=== PATIENT | male | born 1945 | race Caucasian/White ===

== ENCOUNTER → 2017-07-22 | Outpatient (CLI) | payer OTHER ==
--- NOTE | 2017-07-22 13:01 | FL ---
EXAMINATION TYPE: FL barium swallow w video DATE OF EXAM: 07/22/2017 MODIFIED SWALLOW / DEGLUTITION STUDY CLINICAL HISTORY: Dysphagia. TECHNIQUE: Deglutition study is performed utilizing thin liquid barium, honey and nectar thick liqui d barium, barium thick applesauce, and barium coated cracker. 1 minute and 51 seconds of fluoroscopy time was utilized with 0 images saved. COMPARISON: None. FINDINGS: The oral and pharyngeal phases show satisfactory initiation and propagation with all modali ties tested. Normal mastication is seen with solid modalities tested. Intermittent laryngeal penetra tion without aspiration was seen using a large bolus of the thin liquid consistency. During smaller s wallows no penetration was identified with the thin consistency. Throughout the remainder of the exam there is no evidence of penetration or aspiration with any other modality tested. Mild vallecular re tention was seen with the barium thick capsule is consistency. IMPRESSION: Intermittent laryngeal penetration with large bolus thin liquid consistency only. No asp iration. Please refer to speech therapist notes for further details if necessary.
== END | disposition home or self-care (01) ==
LOC: RADFLMAIN 11:04
PROVIDERS: ATTEND Otolaryngology
DX: R13.10 Dysphagia, unspecified (principal)
CPT/HCPCS: 74230

== ENCOUNTER → 2017-08-13 | Outpatient (CLI) | payer OTHER ==
--- NOTE | 2017-08-13 12:07 | MR ---
EXAMINATION TYPE: MR brain wo con DATE OF EXAM: 08/13/2017 11:16 AM COMPARISON: 08/08/2014 HISTORY: Stroke FINDINGS: The ventricles, basal cisterns and sulci overlying the cerebral convexities are moderate to severe en largement. There is evidence of moderate periventricular white matter ischemic demyelination. Remote deep white matter insults are also noted. No acute edema is seen on diffusion weighted imaging. There is no evidence for midline shift or mass effect. Acute intracranial hemorrhage or extra-axial collection is not evident. Mucosal thickening involving the maxillary and ethmoid air cells. IMPRESSION: Age-related atrophic and chronic small vessel ischemic change. No acute intracranial process at this time.
== END ==
LOC: RADMRIMAIN 10:47
PROVIDERS: ATTEND Psychiatry & Neurology Pain Medicine
DX: I63.9 Cerebral infarction, unspecified (principal); M54.5 Low back pain
CPT/HCPCS: 70551

== ENCOUNTER 2017-10-07 20:21 | Emergency (ER) | payer MEDICARE, OTHER ==
--- NOTE | 2017-10-07 21:02 | ED ---
General Adult HPI - General Chief complaint: Fall Stated complaint: Head injury Time Seen by Provider: 10/07/17 20:50 Source: patient, family, RN notes reviewed Mode of arrival: wheelchair Limitations: altered mental status, physical limitation - History of Present Illness Initial comments: Patient is a pleasant 72-year-old male presenting to the emergency department following a fall. Patient does admit to alcohol intake today. Patient states he does drink frequently. Family believes patient likely was not using his walker and fell. Patient does have balance problems from previous stroke and leg injury. Patient did strike his head. Unclear if there was loss of consciousness or not. Patient did seem somewhat drowsy to family prior to arrival however feel he is acting normal at this time. Patient only complains of mild discomfort of his left posterior scalp otherwise has no complaints. - Related Data Home Medications Medication Instructions Recorded Confirmed Atorvastatin [Lipitor] 80 mg PO HS 07/31/15 03/20/16 Cholecalciferol [Vitamin D3] 1,000 unit PO DAILY 07/31/15 03/20/16 Meclizine [Antivert] 12.5 mg PO TID PRN 07/31/15 03/20/16 Vitamin B Complex 1 cap PO DAILY 07/31/15 03/20/16 Atenolol [Tenormin] 25 mg PO DAILY 03/20/16 03/20/16 Budesonide/Formoterol Fumarate 2 puff INHALATION RT-BID 03/20/16 03/20/16 [Symbicort 160-4.5 Mcg Inhaler] Sertraline [Zoloft] 50 mg PO DAILY 03/20/16 03/20/16 Tiotropium 18 Mcg/Puff [Spiriva] 1 cap INHALATION RT-DAILY 03/20/16 03/20/16 Warfarin [Coumadin] 3 mg PO DAILY 03/20/16 03/20/16 oxyCODONE-APAP 5-325MG [Percocet 2 tab PO Q4-6H PRN 03/20/16 03/20/16 5-325 mg] Previous Rx's Medication Instructions Recorded Clopidogrel [Plavix] 75 mg PO DAILY tab 08/13/14 Ipratropium-Albuterol Nebulize 3 ml INHALATION RT-TID ampul.neb 08/13/14 [Duoneb 0.5 mg-3 mg/3 ml Soln] Omeprazole [PriLOSEC] 20 mg PO AC-BRKFST capsule. 08/13/14 Allergies Allergy/AdvReac Type Severity Reaction Status Date / Time No Known Allergies Allergy Verified 10/07/17 20:38 Review of Systems ROS Statement: Those systems with pertinent positive or pertinent negative responses have been documented in the HPI. ROS Other: All systems not noted in ROS Statement are negative. Constitutional: Denies: fever Eyes: Denies: eye pain ENT: Denies: ear pain Respiratory: Denies: cough Cardiovascular: Denies: chest pain Endocrine: Denies: fatigue Gastrointestinal: Denies: abdominal pain Genitourinary: Denies: dysuria Musculoskeletal: Reports: back pain (Chronic and unchanged) Skin: Denies: rash Neurological: Reports: headache Past Medical History Past Medical History: CVA/TIA, Hyperlipidemia, Hypertension, Myocardial Infarction ([place]), Osteoarthritis (OA) Additional Past Medical History / Comment(s): CATARACTS, GOUT Last Myocardial Infarction Date:: UNK History of Any Multi-Drug Resistant Organisms: None Reported Past Surgical History: Back Surgery, Orthopedic Surgery Additional Past Surgical History / Comment(s): RT SHOULDER SX Past Anesthesia/Blood Transfusion Reactions: No Reported Reaction Past Psychological History: No Psychological Hx Reported Smoking Status: Current every day smoker Past Alcohol Use History: Heavy, Occasional Past Drug Use History: None Reported - Past Family History Father Family Medical History: Unable to Obtain Mother Family Medical History: Unable to Obtain General Exam Limitations: altered mental status, physical limitation General appearance: alert, in no apparent distress Head exam: Present: other (Soft tissue swelling left posterior scalp) Eye exam: Present: normal appearance, PERRL ENT exam: Present: normal oropharynx Neck exam: Present: normal inspection. Absent: tenderness Respiratory exam: Present: normal lung sounds bilaterally Cardiovascular Exam: Present: regular rate, normal rhythm GI/Abdominal exam: Present: soft. Absent: tenderness Extremities exam: Present: normal inspection, full ROM. Absent: tenderness Neurological exam: Present: alert, CN II-XII intact Expanded Cranial nerves: EOM's Intact: Normal Motor strength exam: RUE: 5, LUE: 5, RLE: 3 (Reported as chronic and unchanged) , LLE: 5 Eye Response: (4) open spontaneously Motor Response: (6) obeys commands Verbal Response: (5) oriented Psychiatric exam: Present: normal affect, normal mood Skin exam: Present: normal color Course Vital Signs 10/07/17 10/07/17 10/07/17 20:33 21:33 22:09 Temperature 99.0 F Pulse Rate 95 88 112 H Respiratory 18 18 19 Rate Blood Pressure 139/80 138/77 135/70 O2 Sat by Pulse 96 97 95 Oximetry 10/07/17 10/07/17 22:24 23:06 Temperature 98.2 F Pulse Rate 89 82 Respiratory 18 18 Rate Blood Pressure 138/77 O2 Sat by Pulse 96 95 Oximetry EKG Findings - EKG Comments: EKG Findings:: Sinus rhythm at 89. For screening AV block with SC of 212. QRS 92. QT 382. QTC 464. Normal axis. Normal QRS. No acute ST change. Medical Decision Making - Medical Decision Making Patient reevaluated and resting comfortably in bed. Patient and family updated on results and plan. - Lab Data Result diagrams: 10/07/17 21:03 10/07/17 21:03 Lab Results 10/07/17 10/07/17 10/07/17 Range/Units 21:03 21:03 21:03 WBC 8.0 (3.8-10.6) k/uL RBC 5.13 (4.30-5.90) m/uL Hgb 18.5 H (13.0-17.5) gm/dL Hct 54.8 H (39.0-53.0) % MCV 106.8 H (80.0-100.0) fL MCH 36.1 H (25.0-35.0) pg MCHC 33.8 (31.0-37.0) g/dL RDW 14.7 (11.5-15.5) % Plt Count 196 (150-450) k/uL Neutrophils % 58 % Lymphocytes % 33 % Monocytes % 5 % Eosinophils % 2 % Basophils % 0 % Neutrophils # 4.7 (1.3-7.7) k/uL Lymphocytes # 2.6 (1.0-4.8) k/uL Monocytes # 0.4 (0-1.0) k/uL Eosinophils # 0.2 (0-0.7) k/uL Basophils # 0.0 (0-0.2) k/uL Macrocytosis Moderate PT 11.0 (9.0-12.0) sec INR 1.1 (<1.2) APTT 25.2 (22.0-30.0) sec Sodium 142 (137-145) mmol/L Potassium 4.1 (3.5-5.1) mmol/L Chloride 99 (98-107) mmol/L Carbon Dioxide 24 (22-30) mmol/L Anion Gap 19 mmol/L BUN 11 (9-20) mg/dL Creatinine 0.80 (0.66-1.25) mg/dL Est GFR (CKD-EPI)AfAm >90 (>60 ml/min/1.73 sqM) Est GFR (CKD-EPI)NonAf >90 (>60 ml/min/1.73 sqM) Glucose 88 (74-99) mg/dL Calcium 9.5 (8.4-10.2) mg/dL Total Bilirubin 0.8 (0.2-1.3) mg/dL AST 44 (17-59) U/L ALT 42 (21-72) U/L Alkaline Phosphatase 77 (38-126) U/L Total Protein 7.3 (6.3-8.2) g/dL Albumin 4.2 (3.5-5.0) g/dL Serum Alcohol 144 mg/dL - Radiology Data Radiology results: report reviewed (Computed tomography scan of the brain and cervical spine reveal no acute process.), image reviewed (Chest x-ray and pelvis x-ray show no acute process) Disposition Clinical Impression: Fall, Head injury Disposition: HOME SELF-CARE Condition: Stable Instructions: Fall Prevention for Older Adults (ED), Head Injury (ED), Alcohol Intoxication (ED), Abuse of Alcohol (ED) Additional Instructions: Please follow-up with primary care physician in the next day or 2 for recheck. Discontinue alcohol use. Hold Plavix and hold Coumadin for the next 3 days. Return for change in mental status, weakness, confusion, worsening or changing symptoms or other concerns. Is patient prescribed a controlled substance at d/c from ED?: No Referrals: Matias Hoffman DO [Doctor of Osteopathic Medicine] - 1-2 days Time of Disposition: 23:09
[2017-10-07] MEDS ORDERED: SODIUM CHLORIDE 0.9% 1,000 ML IV ONE (21:27)
--- NOTE | 2017-10-07 21:37 | CT ---
EXAMINATION TYPE: CT brain marques andrade DATE OF EXAM: 10/07/2017 COMPARISON: NONE HISTORY: Fall from standing position. CT DLP: 1445.[address] of the brain was performed. The ventricles, basal cisterns and sulci overlying the cerebral convexities demonstrate mildl enlarge ment. There is no evidence for intracranial hemorrhage or sulcal effacement. There is decreased attenuatio n about the periventricular white matter and deep white matter of both cerebral hemispheres, compatib le with chronic small vessel ischemia. No mass effects are seen. If symptoms persist consider MRI. Osseous calvarium is intact. Left temporal parietal scalp hematoma is small in size. IMPRESSION: 1. Age related atrophic and chronic small vessel ischemic change without acute intracranial process seen at this time. CT Cervical Spine: Unenhanced CT of the cervical spine was performed with bone and soft tissue window settings submitted . Coronal and sagittal reconstruction is obtained. There is normal alignment and prevertebral soft tissues. No evidence for acute cervical fracture . Scattered degenerative disc disease and spondylosis. Biapical scarring. IMPRESSION: 1. No evidence for acute fracture or subluxation of the cervical spine.
[2017-10-07 21:47] LABS: Basophils % (A) 0 %; Eosinophils # (A) 0.2 k/uL (0-0.7); Eosinophils % (A) 2 %; HCT 54.8 % (39.0-53.0); HGB 18.5 gm/dL (13.0-17.5); INR 1.1 (<1.2); Lymphocytes # (A) 2.6 k/uL (1.0-4.8); Lymphocytes % (A) 33 %; MCH 36.1 pg (25.0-35.0); MCHC 33.8 g/dL (31.0-37.0); MCV 106.8 fL (80.0-100.0); Macrocytosis Moderate; Mean Platelet Volume 7.3; Monocytes # (A) 0.4 k/uL (0-1.0); Monocytes % (A) 5 %; Neutrophils # (A) 4.7 k/uL (1.3-7.7); Neutrophils % (A) 58 %; Platelet Count 196 k/uL (150-450); RBC 5.13 m/uL (4.30-5.90); RDW 14.7 % (11.5-15.5)
[2017-10-07 21:48] LABS: Partial Thromboplastin Time 25.2 sec (22.0-30.0)
[2017-10-07 21:50] LABS: ALT 42 U/L (21-72); AST 44 U/L (17-59); Albumin 4.2 g/dL (3.5-5.0); Alkaline Phosphatase 77 U/L (38-126); Anion Gap 19 mmol/L; Blood Urea Nitrogen 11 mg/dL (9-20); Calcium 9.5 mg/dL (8.4-10.2); Carbon Dioxide 24 mmol/L (22-30); Chloride 99 mmol/L (98-107); Glucose 88 mg/dL (74-99); Potassium 4.1 mmol/L (3.5-5.1); Sodium 142 mmol/L (137-145); Total Bilirubin 0.8 mg/dL (0.2-1.3); Total Protein 7.3 g/dL (6.3-8.2)
[2017-10-07 21:53] LABS: Alcohol 144 mg/dL
--- NOTE | 2017-10-07 21:53 | XR ---
EXAMINATION TYPE: XR pelvis AP view DATE OF EXAM: 10/07/2017 CLINICAL HISTORY: pain TECHNIQUE: Single view the pelvis is submitted. FINDINGS: No evidence for fracture, dislocation or bony lesion. Joint spaces are well-preserved. S I joints appear symmetric. Postoperative changes lumbar spine and right hip. IMPRESSION: 1. No acute fracture or dislocation seen. ICD 10 NO FRACTURE, INITIAL EVALUATION
--- NOTE | 2017-10-07 21:54 | XR ---
EXAMINATION TYPE: XR chest 1V portable DATE OF EXAM: 10/07/2017 HISTORY: Shortness of breath. COMPARISON: 03/13/1716 TECHNIQUE: Single view of the chest is submitted. FINDINGS: Demonstrated are scattered senescent parenchymal change. There is no evidence for focal infiltrate. The heart is stable. Hilar and mediastinal structures are within normal limits. Degenerative changes are seen of the dorsal spine. IMPRESSION: 1. Chronic changes without evidence for acute pulmonary disease.
[2017-10-07 22:26] VITALS: RESP 18
[2017-10-07 23:07] VITALS: BP 138/77; PULSE 82; TEMP 98.2
== END 2017-10-07 23:08 | disposition home or self-care (01) ==
LOC: EC 20:21
DX: S09.90XA Unspecified injury of head, initial encounter (principal); E78.5 Hyperlipidemia, unspecified; I10 Essential (primary) hypertension; I25.2 Old myocardial infarction; F17.200 Nicotine dependence, unspecified, uncomplicated; Z86.73 Personal history of transient ischemic attack (TIA), and cerebral infarction without residual deficits; Z79.51 Long term (current) use of inhaled steroids; Z79.01 Long term (current) use of anticoagulants; Z79.899 Other long term (current) drug therapy; W18.00XA Striking against unspecified object with subsequent fall, initial encounter; Y92.009 Unspecified place in unspecified non-institutional (private) residence as the place of occurrence of the external cause
CPT/HCPCS: 36415; 70450; 71045; 72125; 72170; 80053; 80320; 85025; 85610; 85730; 93005; 96360; 99284

== ENCOUNTER 2018-02-09 22:23 | Emergency (ER) | payer MEDICARE, OTHER ==
[2018-02-09 22:29] VITALS: RESP 18; TEMP 98.3
--- NOTE | 2018-02-09 23:03 | XR ---
EXAMINATION TYPE: XR ribs RT w pa chest xray DATE OF EXAM: 02/09/2018 COMPARISON: Chest x-ray 03/13/1716 HISTORY: Rib pain TECHNIQUE: 5 views FINDINGS: Heart and mediastinum are normal. Lungs are clear. There is no pleural effusion or pneumoth orax. There is slight deformity on one view of the anterior right seventh rib. This could be a nondis placed fracture. There are fractures of the posterior right seventh and eighth ribs.. IMPRESSION: Right posterior and anterior rib fractures. No pneumothorax. Normal heart.
[2018-02-09] MEDS ORDERED: LIDOCAINE 5% PATCH TOPICAL STA (23:15)
--- NOTE | 2018-02-09 23:21 | ED ---
Fall HPI - General Source: patient, RN notes reviewed Mode of arrival: ambulatory Limitations: no limitations <Matias Deshpande - Last Filed: 02/09/18 23:15> <Marlene Mccullough - Last Filed: 02/10/18 03:14> - General Chief Complaint: Fall Stated Complaint: Fall/Rib pain Time Seen by Provider: 02/09/18 22:39 - History of Present Illness Initial Comments: 72-year-old male present emergency from chief complaint trip and fall. Patient states she is using his walker and states that he tripped over striking his right side of his chest on the couch. Patient denies any head injury, neck or upper extremity injuries. Patient was able to get up off the floor by himself no difficulty. He states he has pain when he coughs or he moves. He states he does not feel short of breath at this time. (Matias Deshpande) - Related Data Home Medications Medication Instructions Recorded Confirmed Atorvastatin [Lipitor] 80 mg PO HS 07/31/15 03/20/16 Cholecalciferol [Vitamin D3] 1,000 unit PO DAILY 07/31/15 03/20/16 Meclizine [Antivert] 12.5 mg PO TID PRN 07/31/15 03/20/16 Vitamin B Complex 1 cap PO DAILY 07/31/15 03/20/16 Atenolol [Tenormin] 25 mg PO DAILY 03/20/16 03/20/16 Budesonide/Formoterol Fumarate 2 puff INHALATION RT-BID 03/20/16 03/20/16 [Symbicort 160-4.5 Mcg Inhaler] Sertraline [Zoloft] 50 mg PO DAILY 03/20/16 03/20/16 Tiotropium 18 Mcg/Puff [Spiriva] 1 cap INHALATION RT-DAILY 03/20/16 03/20/16 Warfarin [Coumadin] 3 mg PO DAILY 03/20/16 03/20/16 oxyCODONE-APAP 5-325MG [Percocet 2 tab PO Q4-6H PRN 03/20/16 03/20/16 5-325 mg] Previous Rx's Medication Instructions Recorded Clopidogrel [Plavix] 75 mg PO DAILY tab 08/13/14 Ipratropium-Albuterol Nebulize 3 ml INHALATION RT-TID ampul.neb 08/13/14 [Duoneb 0.5 mg-3 mg/3 ml Soln] Omeprazole [PriLOSEC] 20 mg PO AC-BRKFST capsule. 08/13/14 Lidocaine 5% Patch [Lidoderm 5% 1 patch TOPICAL DAILY #1 box 02/09/18 Patch] Allergies Allergy/AdvReac Type Severity Reaction Status Date / Time No Known Allergies Allergy Verified 02/09/18 22:29 Review of Systems ROS Other: All systems not noted in ROS Statement are negative. <Matias Deshpande - Last Filed: 02/09/18 23:15> ROS Other: All systems not noted in ROS Statement are negative. <Marlene Mccullough - Last Filed: 02/10/18 03:14> ROS Statement: Those systems with pertinent positive or pertinent negative responses have been documented in the HPI. Past Medical History Past Medical History: CVA/TIA, Hyperlipidemia, Hypertension, Myocardial Infarction ([place]), Osteoarthritis (OA) Additional Past Medical History / Comment(s): CATARACTS, GOUT Last Myocardial Infarction Date:: UNK History of Any Multi-Drug Resistant Organisms: None Reported Past Surgical History: Back Surgery, Orthopedic Surgery Additional Past Surgical History / Comment(s): RT SHOULDER SX Past Anesthesia/Blood Transfusion Reactions: No Reported Reaction Past Psychological History: No Psychological Hx Reported Smoking Status: Current every day smoker Past Alcohol Use History: Heavy, Occasional Past Drug Use History: None Reported - Past Family History Father Family Medical History: Unable to Obtain Mother Family Medical History: Unable to Obtain <Matias Deshpande - Last Filed: 02/09/18 23:15> General Exam Limitations: no limitations General appearance: alert, in no apparent distress Eye exam: Present: normal appearance, PERRL, EOMI. Absent: scleral icterus, conjunctival injection, periorbital swelling Neck exam: Present: normal inspection, full ROM. Absent: tenderness, meningismus, lymphadenopathy Respiratory exam: Present: normal lung sounds bilaterally, chest wall tenderness (Severe right-sided anterior lateral rib tenderness). Absent: respiratory distress, wheezes, rales, rhonchi, stridor Cardiovascular Exam: Present: regular rate, normal rhythm, normal heart sounds. Absent: systolic murmur, diastolic murmur, rubs, gallop, clicks GI/Abdominal exam: Present: soft, normal bowel sounds. Absent: distended, tenderness, guarding, rebound, rigid Extremities exam: Present: normal inspection, full ROM, normal capillary refill. Absent: tenderness, pedal edema, joint swelling, calf tenderness Back exam: Present: full ROM. Absent: tenderness, paraspinal tenderness, vertebral tenderness <Matias Deshpande - Last Filed: 02/09/18 23:15> Vital Signs 02/09/18 02/09/18 22:26 23:30 Temperature 98.3 F Pulse Rate 100 94 Respiratory 18 18 Rate Blood Pressure 171/91 155/86 O2 Sat by Pulse 96 95 Oximetry Medical Decision Making <Matias Deshpande - Last Filed: 02/09/18 23:15> <Marlene Mccullough - Last Filed: 02/10/18 03:14> - Medical Decision Making 72-year-old male presented for a trip, fall injury to the right side of his chest. Patient is noted to have seventh and eighth rib fracture. Patient refuses narcotic pain meds. Patient will be discharged with incentive spirometry, Lidoderm patches. We discussed return parameters and close follow- up. Patient's vitals are stable at this time. (Matias Deshpande) I was available for consultation in the emergency department. The history and physical exam were done by the midlevel provider. I was consulted for this patient's care. I reviewed the case with the midlevel provider and based on their presentation of the patient, I agree with the assessment, medical decision making and plan of care as documented. (Marlene Mccullough) Disposition Is patient prescribed a controlled substance at d/c from ED?: No Time of Disposition: 23:21 <Matias Deshpande - Last Filed: 02/09/18 23:15> <Marlene Mccullough - Last Filed: 02/10/18 03:14> Clinical Impression: Fall, Multiple fractures of ribs, right side, initial encounter for closed fracture Disposition: HOME SELF-CARE Condition: Stable Instructions: Rib Fracture (ED) Additional Instructions: Please return to the Emergency Department if symptoms worsen or any other concerns. Prescriptions: Lidocaine 5% Patch [Lidoderm 5% Patch] 1 patch TOPICAL DAILY #1 box Referrals: [facility],Clinic [Primary Care Provider] - 1-2 days
[2018-02-09 23:33] VITALS: BP 155/86; PULSE 94
== END 2018-02-09 23:39 | disposition home or self-care (01) ==
LOC: EC 22:23
DX: S22.41XA Multiple fractures of ribs, right side, initial encounter for closed fracture (principal); E78.5 Hyperlipidemia, unspecified; I10 Essential (primary) hypertension; I25.2 Old myocardial infarction; M10.9 Gout, unspecified; F17.200 Nicotine dependence, unspecified, uncomplicated; Z86.73 Personal history of transient ischemic attack (TIA), and cerebral infarction without residual deficits; Z79.01 Long term (current) use of anticoagulants; Z79.51 Long term (current) use of inhaled steroids; Z79.899 Other long term (current) drug therapy; W01.190A Fall on same level from slipping, tripping and stumbling with subsequent striking against furniture, initial encounter; Y92.009 Unspecified place in unspecified non-institutional (private) residence as the place of occurrence of the external cause
CPT/HCPCS: 99283

== ENCOUNTER 2019-01-15 01:10 | Emergency (ER) | payer MEDICARE, OTHER ==
[2019-01-15] MEDS ORDERED: DIPH,PERTUS(ACELL)TETVAC-LF 0.5 ML VIAL IM ONE (01:12)
[2019-01-15] MEDS ORDERED: SODIUM CHLORIDE 0.9% 1,000 ML IV STA (01:12)
--- NOTE | 2019-01-15 01:36 | ED ---
Fall HPI <Matias Deshpande M - Last Filed: 01/15/19 02:51> - General Source: quantitative analyst marketing Mode of arrival: EMS <Marlene Mccullough - Last Filed: 01/15/19 06:22> - General Stated Complaint: Fall, ETOH Time Seen by Provider: 01/15/19 01:12 - History of Present Illness Initial Comments: Roney is a 73-year-old male who is brought to the ED today via EMS for corky luation after fall. Patient reports he was drinking alcohol earlier, he had a fall and struck his head. He doesn't believe he lost consciousness. Apparently his neighbor attempted to help about but couldn't so he called 911. Patient denies other injuries or pain however he is quite intoxicated and does not recall all events of the evening. (Marlene Mccullough) - Related Data Home Medications Medication Instructions Recorded Confirmed Atorvastatin [Lipitor] 80 mg PO HS 07/31/15 03/20/16 Cholecalciferol [Vitamin D3 (25 1,000 unit PO DAILY 07/31/15 03/20/16 Mcg = 1000 Iu)] Meclizine [Antivert] 12.5 mg PO TID PRN 07/31/15 03/20/16 Vitamin B Complex 1 cap PO DAILY 07/31/15 03/20/16 Atenolol [Tenormin] 25 mg PO DAILY 03/20/16 03/20/16 Budesonide/Formoterol Fumarate 2 puff INHALATION RT-BID 03/20/16 03/20/16 [Symbicort 160-4.5 Mcg Inhaler] Sertraline [Zoloft] 50 mg PO DAILY 03/20/16 03/20/16 Tiotropium 18 Mcg/Puff [Spiriva] 1 cap INHALATION RT-DAILY 03/20/16 03/20/16 Warfarin [Coumadin] 3 mg PO DAILY 03/20/16 03/20/16 oxyCODONE-APAP 5-325MG [Percocet 2 tab PO Q4-6H PRN 03/20/16 03/20/16 5-325 mg] Previous Rx's Medication Instructions Recorded Clopidogrel [Plavix] 75 mg PO DAILY tab 08/13/14 Ipratropium-Albuterol Nebulize 3 ml INHALATION RT-TID ampul.neb 08/13/14 [Duoneb 0.5 mg-3 mg/3 ml Soln] Omeprazole [PriLOSEC] 20 mg PO AC-BRKFST capsule. 08/13/14 Lidocaine 5% Patch [Lidoderm 5% 1 patch TOPICAL DAILY #1 box 02/09/18 Patch] Allergies Allergy/AdvReac Type Severity Reaction Status Date / Time No Known Allergies Allergy Verified 01/15/19 01:17 Review of Systems ROS Other: All systems not noted in ROS Statement are negative. <Matias Deshpande - Last Filed: 01/15/19 02:51> ROS Other: All systems not noted in ROS Statement are negative. <Marlene Mccullough - Last Filed: 01/15/19 06:22> ROS Statement: Those systems with pertinent positive or pertinent negative responses have been documented in the HPI. Past Medical History Past Medical History: CVA/TIA, Hyperlipidemia, Hypertension, Myocardial Infarction ([place]), Osteoarthritis ([place]) Additional Past Medical History / Comment(s): CATARACTS, GOUT Last Myocardial Infarction Date:: UNK History of Any Multi-Drug Resistant Organisms: None Reported Past Surgical History: Back Surgery, Orthopedic Surgery Additional Past Surgical History / Comment(s): RT SHOULDER SX Past Anesthesia/Blood Transfusion Reactions: No Reported Reaction Past Psychological History: No Psychological Hx Reported Smoking Status: Current every day smoker Past Alcohol Use History: Heavy, Occasional Past Drug Use History: None Reported - Past Family History Father Family Medical History: Unable to Obtain Mother Family Medical History: Unable to Obtain <Marlene Mccullough P - Last Filed: 01/15/19 06:22> General Exam Limitations: altered mental status <Marlene Mccullough P - Last Filed: 01/15/19 06:22> - General Exam Comments Initial Comments: Physical Exam GENERAL: Chronically ill-appearing HENT: Normocephalic Laceration was appears surface of head No crepitance No mandujano signs or raccoon eyes EYES: PERRL, EOMI PULMONARY: Mild expiratory wheezing CARDIOVASCULAR: There is a regular rate and rhythm without any murmurs gallops or rubs. ABDOMEN: Soft and nontender with normal bowel sounds. SKIN: Skin is clear with no lesions or rashes and otherwise unremarkable. : Deferred NEUROLOGIC: Alert and oriented to person, able to identify that he is in a hospital and came by ambulance, able to identify the president Somewhat confused about events of the evening, poor medical leader MUSCULOSKELETAL: Normal extremities with adequate strength and full range of motion. No lower extremity swelling or edema. No calf tenderness. PSYCHIATRIC: Deny suicidal or homicidal ideation (Marlene Mccullough) Course Vital Signs 01/15/19 01/15/19 01:11 02:37 Temperature 98.2 F 98.0 F Pulse Rate 99 96 Respiratory 18 18 Rate Blood Pressure 141/108 137/98 O2 Sat by Pulse 95 97 Oximetry Procedures - Laceration Laceration #1 Consent Obtained: verbal consent Indication: laceration Site: scalp Size (cm): 7 Description: linear Depth: simple, single layer Pre-repair: wound explored, irrigated extensively, deep structures intact Type of Sutures: other (Dermal courtney) Number of Sutures: 10 (courtney) Patient Tolerated Procedure: well, no complications <Matias Deshpande - Last Filed: 01/15/19 02:51> Medical Decision Making - Lab Data Result diagrams: 01/15/19 01:15 01/15/19 01:15 <Matias Deshpande - Last Filed: 01/15/19 02:51> - Lab Data Result diagrams: 01/15/19 01:15 01/15/19 01:15 <Marlene Mccullough - Last Filed: 01/15/19 06:22> - Medical Decision Making The patient was seen and evaluated per ATLS peripheral Patient has a patent airway and is speaking in full sentences, breath sounds are present bilaterally There is no active bleeding Secondary survey does reveal laceration of the head as well as some confusion Labs and imaging ordered EKG was obtained as per the trauma workup, EKG obtained at 20 5 AM, rate is 98 rhythm is sinus there is normal axis, there is a prolonged RI 214, QS is 80, QTC is 472 there are no acute ST elevations or depressions no evidence of acute ischemia or infarction. Labs were reviewed, mild elevation of AST consistent with alcohol abuse Alcohol [address] with no acute findings, laceration was repaired with courtney (Marlene Mccullough) - Lab Data Lab Results 01/15/19 01/15/19 01/15/19 Range/Units 01:15 01:15 01:15 WBC 9.9 (3.8-10.6) k/uL RBC 4.56 (4.30-5.90) m/uL Hgb 17.1 (13.0-17.5) gm/dL Hct 54.6 H (39.0-53.0) % MCV 119.6 H (80.0-100.0) fL MCH 37.4 H (25.0-35.0) pg MCHC 31.3 (31.0-37.0) g/dL RDW 14.7 (11.5-15.5) % Plt Count 165 (150-450) k/uL Neutrophils % 55 % Lymphocytes % 36 % Monocytes % 4 % Eosinophils % 2 % Basophils % 1 % Neutrophils # 5.4 (1.3-7.7) k/uL Lymphocytes # 3.5 (1.0-4.8) k/uL Monocytes # 0.3 (0-1.0) k/uL Eosinophils # 0.2 (0-0.7) k/uL Basophils # 0.1 (0-0.2) k/uL Manual Slide Review Performed Macrocytosis Marked A Stomatocytes Present PT 10.6 (9.0-12.0) sec INR 1.0 (<1.2) APTT 22.3 (22.0-30.0) sec Sodium 139 (137-145) mmol/L Potassium 4.7 (3.5-5.1) mmol/L Chloride 106 (98-107) mmol/L Carbon Dioxide 19 L (22-30) mmol/L Anion Gap 14 mmol/L BUN 8 L (9-20) mg/dL Creatinine 0.70 (0.66-1.25) mg/dL Est GFR (CKD-EPI)AfAm >90 (>60 ml/min/1.73 sqM) Est GFR (CKD-EPI)NonAf >90 (>60 ml/min/1.73 sqM) Glucose 104 H (74-99) mg/dL Calcium 9.3 (8.4-10.2) mg/dL Total Bilirubin 0.6 (0.2-1.3) mg/dL AST 83 H (17-59) U/L ALT 55 (21-72) U/L Alkaline Phosphatase 111 (38-126) U/L Total Protein 8.0 (6.3-8.2) g/dL Albumin 4.3 (3.5-5.0) g/dL Urine Color Urine Appearance (Clear) Urine pH (5.0-8.0) Ur Specific [place] (1.001-1.035) Urine Protein (Negative) Urine Glucose (UA) (Negative) Urine Ketones (Negative) Urine Blood (Negative) Urine Nitrite (Negative) Urine Bilirubin (Negative) Urine Urobilinogen (<2.0) mg/dL Ur Leukocyte Esterase (Negative) Urine RBC (0-5) /hpf Urine WBC (0-5) /hpf Ur Squamous Epith Cells (0-4) /hpf Urine Bacteria (None) /hpf Hyaline Casts (0-2) /lpf Serum Alcohol 220 H* mg/dL Blood Type Blood Type Recheck Antibody Screen Spec Expiration Date 01/15/19 01/15/19 Range/Units 01:15 02:08 WBC (3.8-10.6) k/uL RBC (4.30-5.90) m/uL Hgb (13.0-17.5) gm/dL Hct (39.0-53.0) % MCV (80.0-100.0) fL MCH (25.0-35.0) pg MCHC (31.0-37.0) g/dL RDW (11.5-15.5) % Plt Count (150-450) k/uL Neutrophils % % Lymphocytes % % Monocytes % % Eosinophils % % Basophils % % Neutrophils # (1.3-7.7) k/uL Lymphocytes # (1.0-4.8) k/uL Monocytes # (0-1.0) k/uL Eosinophils # (0-0.7) k/uL Basophils # (0-0.2) k/uL Manual Slide Review Macrocytosis Stomatocytes PT (9.0-12.0) sec INR (<1.2) APTT (22.0-30.0) sec Sodium (137-145) mmol/L Potassium (3.5-5.1) mmol/L Chloride (98-107) mmol/L Carbon Dioxide (22-30) mmol/L Anion Gap mmol/L BUN (9-20) mg/dL Creatinine (0.66-1.25) mg/dL Est GFR (CKD-EPI)AfAm (>60 ml/min/1.73 sqM) Est GFR (CKD-EPI)NonAf (>60 ml/min/1.73 sqM) Glucose (74-99) mg/dL Calcium (8.4-10.2) mg/dL Total Bilirubin (0.2-1.3) mg/dL AST (17-59) U/L ALT (21-72) U/L Alkaline Phosphatase (38-126) U/L Total Protein (6.3-8.2) g/dL Albumin (3.5-5.0) g/dL Urine Color Yellow Urine Appearance Clear (Clear) Urine pH 5.5 (5.0-8.0) Ur Specific [place] 1.006 (1.001-1.035) Urine Protein Negative (Negative) Urine Glucose (UA) Negative (Negative) Urine Ketones Negative (Negative) Urine Blood Trace H (Negative) Urine Nitrite Negative (Negative) Urine Bilirubin Negative (Negative) Urine Urobilinogen <2.0 (<2.0) mg/dL Ur Leukocyte Esterase Small H (Negative) Urine RBC 1 (0-5) /hpf Urine WBC 11 H (0-5) /hpf Ur Squamous Epith Cells <1 (0-4) /hpf Urine Bacteria Rare H (None) /hpf Hyaline Casts 1 (0-2) /lpf Serum Alcohol mg/dL Blood Type O Positive Blood Type Recheck No Antibody Screen NEGATIVE Spec Expiration Date 01/18/2019 - 0 Disposition <Matias Deshpande M - Last Filed: 01/15/19 02:51> Is patient prescribed a controlled substance at d/c from ED?: No <Marlene Mccullough - Last Filed: 01/15/19 06:22> Clinical Impression: Fall, Scalp laceration, Alcohol intoxication Disposition: HOME SELF-CARE Condition: Stable Instructions (If sedation given, give patient instructions): Fall Prevention for Older Adults (ED), Staple Care (ED) Additional Instructions: Return in 1 week for staple removal Referrals: [facility],Clinic [Primary Care Provider] - 1-2 days
[2019-01-15 01:46] LABS: Basophils # (A) 0.1 k/uL (0-0.2); Basophils % (A) 1 %; Eosinophils # (A) 0.2 k/uL (0-0.7); Eosinophils % (A) 2 %; HCT 54.6 % (39.0-53.0); HGB 17.1 gm/dL (13.0-17.5); Lymphocytes # (A) 3.5 k/uL (1.0-4.8); Lymphocytes % (A) 36 %; MCH 37.4 pg (25.0-35.0); MCHC 31.3 g/dL (31.0-37.0); MCV 119.6 fL (80.0-100.0); Macrocytosis Marked; Mean Platelet Volume 7.4; Monocytes # (A) 0.3 k/uL (0-1.0); Monocytes % (A) 4 %; Neutrophils # (A) 5.4 k/uL (1.3-7.7); Neutrophils % (A) 55 %; Platelet Count 165 k/uL (150-450); RBC 4.56 m/uL (4.30-5.90); RDW 14.7 % (11.5-15.5); WBC 9.9 k/uL (3.8-10.6)
--- NOTE | 2019-01-15 01:58 | XR ---
EXAM: XR Chest, 1 View CLINICAL HISTORY: ITS.REASON XR Reason: trauma TECHNIQUE: Frontal view of the chest. COMPARISON: 10/07/17 IMPRESSION: No pneumothorax, pulmonary edema, pleural effusion, consolidation. Unchanged heart size. No definite fracture.
[2019-01-15 01:59] LABS: ALT 55 U/L (21-72); AST 83 U/L (17-59); African American GFR (CKD) >90 (>60 ml/min/1.73 sqM); Albumin 4.3 g/dL (3.5-5.0); Alkaline Phosphatase 111 U/L (38-126); Anion Gap 14 mmol/L; Blood Urea Nitrogen 8 mg/dL (9-20); Calcium 9.3 mg/dL (8.4-10.2); Carbon Dioxide 19 mmol/L (22-30); Chloride 106 mmol/L (98-107); Glucose 104 mg/dL (74-99); Potassium 4.7 mmol/L (3.5-5.1); Sodium 139 mmol/L (137-145); Total Bilirubin 0.6 mg/dL (0.2-1.3)
--- NOTE | 2019-01-15 01:59 | XR ---
EXAM: XR Pelvis, 1 or 2 Views CLINICAL HISTORY: ITS.REASON XR Reason: Trauma TECHNIQUE: Frontal view of the pelvis. COMPARISON: 10/07/17 IMPRESSION: Unchanged right femoral hardware. Moderate bilateral hip joint space loss, unchanged. Heterotopic ossification around the right femoral head, Unchanged. No fracture or subluxation.
[2019-01-15 02:05] LABS: Partial Thromboplastin Time 22.3 sec (22.0-30.0); Prothrombin Time 10.6 sec (9.0-12.0)
--- NOTE | 2019-01-15 02:15 | CT ---
EXAM: CT Head Without Intravenous Contrast CLINICAL HISTORY: ITS.REASON CT Reason: trauma TECHNIQUE: Axial computed tomography images of the head/brain without intravenous contrast. CTDI is 45 mGy and DLP is 1102 mGy-cm. This CT exam was performed using one or more of the following dose reduction techniques: automated exposure control, adjustment of the mA and/or kV according to patient size, and/or use of iterative reconstruction technique. COMPARISON: 10/07/17 CT head FINDINGS: Brain: No hemorrhage, large hypodensity, or mass effect. Chronic microvascular ischemic changes. Ventricles: No hydrocephalus. Age related cerebral volume loss. Bones/joints: Unremarkable. Soft tissues: Unremarkable. Sinuses: Minimal mucosal thickening of the paranasal sinuses. Mastoid air cells: Clear. IMPRESSION: No acute hemorrhage, hydrocephalus, or mass effect. EXAM: CT Cervical Spine Without Intravenous Contrast CLINICAL HISTORY: ITS.REASON CT Reason: trauma TECHNIQUE: Axial computed tomography images of the cervical spine without intravenous contrast. CTDI is 12 mGy and DLP is 383 mGy-cm. This CT exam was performed using one or more of the following dose reduction techniques: automated exposure control, adjustment of the mA and/or kV according to patient size, and/or use of iterative reconstruction technique. COMPARISON: 10/07/17 CT cervical spine FINDINGS: Vertebrae: No acute fracture. Unfused posterior arch of C1. Discs/spinal canal/neural foramina: Degenerative changes. No high grade spinal canal stenosis. 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 IMPRESSION: No acute fracture or subluxation. 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
[2019-01-15 02:19] LABS: Alcohol 220 mg/dL
[2019-01-15 02:26] LABS: Stomatocytes Present
[2019-01-15 02:36] LABS: Appearance,Urine Clear (Clear); Bacteria,Urine Rare /hpf; Bilirubin,Urine Negative (Negative); Blood,Urine Trace (Negative); Color,Urine Yellow; Glucose,Urine (UA) Negative (Negative); Hyaline Casts,Urine 1 /lpf (0-2); Ketones,Urine Negative (Negative); Leukocyte Esterase,Urine Small (Negative); Nitrite,Urine Negative (Negative); PH, Urine 5.5 (5.0-8.0); Protein,Urine Negative (Negative); RBC,Urine 1 /hpf (0-5); Specific Gravity,Urine 1.006 (1.001-1.035); Squamous Epithelial Cell,Urine <1 /hpf (0-4); Urobilinogen,Urine <2.0 mg/dL (<2.0); WBC,Urine 11 /hpf (0-5)
[2019-01-15 07:04] VITALS: RESP 18
[2019-01-15 07:12] VITALS: BP 134/75; PULSE 98; TEMP 98.2
== END 2019-01-15 07:40 | disposition home or self-care (01) ==
LOC: EC 01:10
DX: S01.01XA Laceration without foreign body of scalp, initial encounter (principal); F10.129 Alcohol abuse with intoxication, unspecified; R74.0 Nonspecific elevation of levels of transaminase and lactic acid dehydrogenase [LDH]; E78.5 Hyperlipidemia, unspecified; I10 Essential (primary) hypertension; I25.2 Old myocardial infarction; M19.90 Unspecified osteoarthritis, unspecified site; F17.200 Nicotine dependence, unspecified, uncomplicated; Z86.73 Personal history of transient ischemic attack (TIA), and cerebral infarction without residual deficits; Z79.51 Long term (current) use of inhaled steroids; Z79.01 Long term (current) use of anticoagulants; Z79.891 Long term (current) use of opiate analgesic; Z79.899 Other long term (current) drug therapy; Z23 Encounter for immunization; W19.XXXA Unspecified fall, initial encounter; Y90.7 Blood alcohol level of 200-239 mg/100 ml
CPT/HCPCS: 12002; 36415; 70450; 71045; 72125; 72170; 80053; 80320; 81001; 85025; 85610; 85730; 86850; 86900; 86901; 90471; 90715; 96360; 99284

== ENCOUNTER 2019-07-05 00:55 | Emergency (ER) | payer OTHER ==
--- NOTE | 2019-07-05 01:12 | ED ---
Alcohol HPI - General Chief Complaint: Alcohol Stated Complaint: ETOH Time Seen by Provider: 07/05/19 01:06 Source: patient, police, EMS Mode of arrival: EMS - History of Present Illness Initial Comments: Patient is 73-year-old man brought by ambulance to have evaluation. Had been drinking all day and then had a fall and struck his head. At the scene patient not able to ambulate without assistance. Patient indicates the left occipital area. Not sure if he lost consciousness. MD Complaint: alcohol intoxication Last Drink: just VEGETABLE SCULLION Recent Trauma: Yes Associated Symptoms: denies other symptoms Treatments Prior to Arrival: none Chronic Alcohol Use: Yes - Related Data Home Medications Medication Instructions Recorded Confirmed Atorvastatin [Lipitor] 80 mg PO HS 07/31/15 03/20/16 Cholecalciferol [Vitamin D3 (25 1,000 unit PO DAILY 07/31/15 03/20/16 Mcg = 1000 Iu)] Meclizine [Antivert] 12.5 mg PO TID PRN 07/31/15 03/20/16 Vitamin B Complex 1 cap PO DAILY 07/31/15 03/20/16 Atenolol [Tenormin] 25 mg PO DAILY 03/20/16 03/20/16 Budesonide/Formoterol Fumarate 2 puff INHALATION RT-BID 03/20/16 03/20/16 [Symbicort 160-4.5 Mcg Inhaler] Sertraline [Zoloft] 50 mg PO DAILY 03/20/16 03/20/16 Tiotropium 18 Mcg/Puff [Spiriva] 1 cap INHALATION RT-DAILY 03/20/16 03/20/16 Warfarin [Coumadin] 3 mg PO DAILY 03/20/16 03/20/16 oxyCODONE-APAP 5-325MG [Percocet 2 tab PO Q4-6H PRN 03/20/16 03/20/16 5-325 mg] Previous Rx's Medication Instructions Recorded Clopidogrel [Plavix] 75 mg PO DAILY tab 08/13/14 Ipratropium-Albuterol Nebulize 3 ml INHALATION RT-TID ampul.neb 08/13/14 [Duoneb 0.5 mg-3 mg/3 ml Soln] Omeprazole [PriLOSEC] 20 mg PO AC-BRKFST capsule. 08/13/14 Lidocaine 5% Patch [Lidoderm 5% 1 patch TOPICAL DAILY #1 box 02/09/18 Patch] Allergies Allergy/AdvReac Type Severity Reaction Status Date / Time No Known Allergies Allergy Verified 01/15/19 01:17 Review of Systems ROS Statement: Those systems with pertinent positive or pertinent negative responses have been documented in the HPI. ROS Other: All systems not noted in ROS Statement are negative. Constitutional: Denies: fever Eyes: Denies: vision change Respiratory: Denies: cough, dyspnea Cardiovascular: Reports: syncope. Denies: chest pain Gastrointestinal: Denies: abdominal pain, vomiting Musculoskeletal: Denies: back pain Skin: Denies: rash Neurological: Reports: as per HPI, headache, confusion. Denies: weakness, numbness, paresthesias Psychiatric: Denies: suicidal thoughts Past Medical History Past Medical History: CVA/TIA, Hyperlipidemia, Hypertension, Myocardial Infarction ([place]), Osteoarthritis (OA) Additional Past Medical History / Comment(s): CATARACTS, GOUT Last Myocardial Infarction Date:: UNK History of Any Multi-Drug Resistant Organisms: None Reported Past Surgical History: Back Surgery, Orthopedic Surgery Additional Past Surgical History / Comment(s): RT SHOULDER SX Past Anesthesia/Blood Transfusion Reactions: No Reported Reaction Past Psychological History: No Psychological Hx Reported Smoking Status: Current every day smoker Past Alcohol Use History: Heavy, Occasional Past Drug Use History: None Reported - Past Family History Father Family Medical History: Unable to Obtain Mother Family Medical History: Unable to Obtain General Exam General appearance: alert, appears intoxicated Head exam: Present: normocephalic, other (Contusion left occipital) Eye exam: Present: normal appearance, PERRL, EOMI, nystagmus. Absent: scleral icterus, conjunctival injection Neck exam: Present: normal inspection, full ROM. Absent: tenderness Respiratory exam: Present: normal lung sounds bilaterally. Absent: respiratory distress, wheezes, rales, rhonchi, stridor Cardiovascular Exam: Present: regular rate, normal rhythm, normal heart sounds. Absent: systolic murmur, diastolic murmur, rubs, gallop GI/Abdominal exam: Present: soft. Absent: tenderness, guarding, rebound Extremities exam: Present: normal inspection, normal capillary refill Back exam: Present: normal inspection. Absent: vertebral tenderness Neurological exam: Present: alert, CN II-XII intact. Absent: oriented X3, motor sensory deficit Skin exam: Present: warm, dry, intact, normal color. Absent: rash Course Vital Signs 07/05/19 00:56 Temperature 97 F L Pulse Rate 109 H Respiratory 18 Rate Blood Pressure 136/85 O2 Sat by Pulse 98 Oximetry Disposition Clinical Impression: Alcoholic intoxication, Status post fall, Head injury Disposition: HOME SELF-CARE Condition: Good Instructions (If sedation given, give patient instructions): Alcohol Intoxication (ED) Is patient prescribed a controlled substance at d/c from ED?: No Referrals: [facility],Clinic [Primary Care Provider] - 1-2 days
--- NOTE | 2019-07-05 02:34 | CT ---
EXAMINATION TYPE: CT brain marques wo con DATE OF EXAM: 07/05/2019 COMPARISON: 01/15/2019 HISTORY: Fall Headache. Neck pain CT DLP: 1301.9 mGycm Automated exposure control for dose reduction was used. Multiple axial sections were obtained of the brain without contrast. Multiple axial sections were obt ained from the skull base to T1 vertebra without contrast. FINDINGS: Cervical vertebra have normal alignment. Disc spaces are fairly normal for age. Posterior elements ar e intact. Facet joints are intact. The skull base is intact. There is mild hypertrophic cervical face t arthropathy. There is no evidence of cervical spine fracture. There is moderate diffuse cerebral cortical atrophy. There is no mass effect nor midline shift. There is no sign of intracranial hemorrhage. The calvarium is intact. There is no evidence of cerebral cameron ma. IMPRESSION: Cerebral atrophy. No acute intracranial abnormality. No change. Spondylotic mild changes in the cervical spine. No fracture. No change.
[2019-07-05 08:53] VITALS: BP 123/85; PULSE 95; RESP 18; TEMP 97.8
== END 2019-07-05 08:51 | disposition home or self-care (01) ==
LOC: EC 00:55
DX: F10.129 Alcohol abuse with intoxication, unspecified (principal); S00.03XA Contusion of scalp, initial encounter; I10 Essential (primary) hypertension; E78.5 Hyperlipidemia, unspecified; I25.2 Old myocardial infarction; F17.200 Nicotine dependence, unspecified, uncomplicated; Z79.01 Long term (current) use of anticoagulants; Z79.899 Other long term (current) drug therapy; Z79.51 Long term (current) use of inhaled steroids; Z86.73 Personal history of transient ischemic attack (TIA), and cerebral infarction without residual deficits; W18.09XA Striking against other object with subsequent fall, initial encounter
CPT/HCPCS: 70450; 72125; 82075; 99284

== ENCOUNTER 2019-07-07 14:53 | Emergency (ER) | payer OTHER ==
[2019-07-07 15:00] VITALS: TEMP 97.9
[2019-07-07] MEDS ORDERED: HYDROcodone/APAP 7.5-325MG 1 EACH TAB PO ONE (15:22)
--- NOTE | 2019-07-07 15:24 | ED ---
Fall HPI - General Chief Complaint: Fall Stated Complaint: elbow pain-revisit Time Seen by Provider: 07/07/19 15:09 Source: patient, RN notes reviewed Mode of arrival: wheelchair Limitations: no limitations - History of Present Illness Initial Comments: This is a 73-year-old male presents emergency Department chief complaint right elbow pain. Patient didn't increasing pain over the last day. He states he had a fall 2 days ago which is evaluated in the emergency department has CT of his head but states he did not have much discomfort his right elbow at the time. He does admit that he was intoxicated and may be this altered. Patient is unable to move his right elbow fully without discomfort. There has been some redness and swelling noted no fevers or chills. - Related Data Home Medications Medication Instructions Recorded Confirmed Atorvastatin [Lipitor] 80 mg PO HS 07/31/15 03/20/16 Cholecalciferol [Vitamin D3 (25 1,000 unit PO DAILY 07/31/15 03/20/16 Mcg = 1000 Iu)] Meclizine [Antivert] 12.5 mg PO TID PRN 07/31/15 03/20/16 Vitamin B Complex 1 cap PO DAILY 07/31/15 03/20/16 Atenolol [Tenormin] 25 mg PO DAILY 03/20/16 03/20/16 Budesonide/Formoterol Fumarate 2 puff INHALATION RT-BID 03/20/16 03/20/16 [Symbicort 160-4.5 Mcg Inhaler] Sertraline [Zoloft] 50 mg PO DAILY 03/20/16 03/20/16 Tiotropium 18 Mcg/Puff [Spiriva] 1 cap INHALATION RT-DAILY 03/20/16 03/20/16 Warfarin [Coumadin] 3 mg PO DAILY 03/20/16 03/20/16 oxyCODONE-APAP 5-325MG [Percocet 2 tab PO Q4-6H PRN 03/20/16 03/20/16 5-325 mg] Previous Rx's Medication Instructions Recorded Clopidogrel [Plavix] 75 mg PO DAILY tab 08/13/14 Ipratropium-Albuterol Nebulize 3 ml INHALATION RT-TID ampul.neb 08/13/14 [Duoneb 0.5 mg-3 mg/3 ml Soln] Omeprazole [PriLOSEC] 20 mg PO AC-BRKFST capsule. 08/13/14 Lidocaine 5% Patch [Lidoderm 5% 1 patch TOPICAL DAILY #1 box 02/09/18 Patch] Clindamycin HCl 300 mg PO Q6HR #40 cap 07/07/19 Allergies Allergy/AdvReac Type Severity Reaction Status Date / Time No Known Allergies Allergy Verified 07/07/19 14:59 Review of Systems ROS Statement: Those systems with pertinent positive or pertinent negative responses have been documented in the HPI. ROS Other: All systems not noted in ROS Statement are negative. Past Medical History Past Medical History: CVA/TIA, Hyperlipidemia, Hypertension, Myocardial Infarction ([place]), Osteoarthritis (OA) Additional Past Medical History / Comment(s): CATARACTS, GOUT Last Myocardial Infarction Date:: UNK History of Any Multi-Drug Resistant Organisms: None Reported Past Surgical History: Back Surgery, Orthopedic Surgery Additional Past Surgical History / Comment(s): RT SHOULDER SX Past Anesthesia/Blood Transfusion Reactions: No Reported Reaction Past Psychological History: No Psychological Hx Reported Smoking Status: Current every day smoker Past Alcohol Use History: Daily, Heavy Past Drug Use History: None Reported - Past Family History Father Family Medical History: Unable to Obtain Mother Family Medical History: Unable to Obtain General Exam Limitations: no limitations General appearance: alert, in no apparent distress Head exam: Present: atraumatic, normocephalic, normal inspection Respiratory exam: Present: normal lung sounds bilaterally. Absent: respiratory distress, wheezes, rales, rhonchi, stridor Cardiovascular Exam: Present: regular rate, normal rhythm, normal heart sounds. Absent: systolic murmur, diastolic murmur, rubs, gallop, clicks Extremities exam: Present: other (Right elbow there is moderate swelling, mild erythema mild increase in warmth, very limited range of motion secondary to pain, tenderness with palpation no pain proximal or distal to the right elbow) Course Vital Signs 07/07/19 14:56 Temperature 97.9 F Pulse Rate 115 H Respiratory 20 Rate Blood Pressure 152/90 O2 Sat by Pulse 94 L Oximetry Medical Decision Making - Medical Decision Making X-rays negative for acute fracture. Patient does have symptoms consistent with bursitis there is no open lesions or sores there is no clear evidence for infection though patient we placed and advised to follow-up with orthopedics. Disposition Clinical Impression: Olecranon bursitis, right elbow Disposition: HOME SELF-CARE Condition: Stable Instructions (If sedation given, give patient instructions): Elbow Bursitis (ED) Additional Instructions: Please return to the Emergency Department if symptoms worsen or any other concerns. Prescriptions: Clindamycin HCl 300 mg PO Q6HR #40 cap Is patient prescribed a controlled substance at d/c from ED?: No Referrals: [facility],Clinic [Primary Care Provider] - 1-2 days Raghu Reyes MD [Medical Doctor] - 1-2 days Time of Disposition: 16:09
--- NOTE | 2019-07-07 15:56 | XR ---
EXAMINATION TYPE: XR elbow complete RT DATE OF EXAM: 07/07/2019 CLINICAL HISTORY: pain TECHNIQUE: Frontal, lateral and oblique images of the right elbow are obtained. COMPARISON: None. FINDINGS: There is no acute fracture/dislocation evident of the elbow. No abnormal fat pad signs ar e seen. The overlying soft tissue appears unremarkable. IMPRESSION: There is no acute fracture or dislocation of the elbow. ICD 10 NO FRACTURE, INITIAL EVALUATION
[2019-07-07] MEDS ORDERED: ACET/COD 300 MG/30 MG STARTER PACK 6 TAB BTL PO STA (16:09)
[2019-07-07 16:21] VITALS: BP 122/87; PULSE 100; RESP 18
== END 2019-07-07 16:17 | disposition home or self-care (01) ==
LOC: EC 14:53
DX: M70.21 Olecranon bursitis, right elbow (principal); E78.5 Hyperlipidemia, unspecified; I10 Essential (primary) hypertension; I25.2 Old myocardial infarction; M19.90 Unspecified osteoarthritis, unspecified site; M10.9 Gout, unspecified; F17.200 Nicotine dependence, unspecified, uncomplicated; Z79.01 Long term (current) use of anticoagulants; Z79.899 Other long term (current) drug therapy; Z98.890 Other specified postprocedural states; Z86.73 Personal history of transient ischemic attack (TIA), and cerebral infarction without residual deficits; W19.XXXA Unspecified fall, initial encounter
CPT/HCPCS: 99283

== ENCOUNTER 2019-07-21 18:08 | Emergency (ER) | payer OTHER ==
[2019-07-21] MEDS ORDERED: SODIUM CHLORIDE 0.9% 1,000 ML IV STA (18:13)
[2019-07-21 18:16] LABS: Glucose,Whole Blood 123 mg/dL (75-99)
--- NOTE | 2019-07-21 18:31 | ED ---
General Adult HPI - General Stated complaint: Poss CVA Time Seen by Provider: 07/21/19 18:13 - History of Present Illness Initial comments: Dictation was produced using [employer] dictation software. please excuse any grammatical, word or spelling errors. Chief Complaint: 73-year-old male with past medical history of CVA, dyslipidemia hypertension presents with strokelike symptoms. History of Present Illness: 73-year-old male presents with strokelike symptoms. Patient is brought in by EMS. He was last seen normal approximately 2:30 PM. Patient was found in the ground by family members. Family members were called and noted that patient was discovered to have left-sided weakness. Patient is on Coumadin therapy. She is a poor historian at this time. Most of history is obtained from EMS. She allegedly has history of CVA with right-sided residual deficits. The ROS documented in this emergency department record has been reviewed and confirmed by me. Those systems with pertinent positive or negative responses have been documented in the HPI. All other systems are other negative and/or noncontributory. PHYSICAL EXAM: General Impression: Alert and oriented x3, not in acute distress, follows commands HEENT: Normocephalic atraumatic, extra-ocular movements intact, pupils equal and reactive to light bilaterally, tremulous membranes Cardiovascular: Tachycardic Chest: Mild end expiratory wheeze Abdomen: Bowel sounds present, abdomen soft, non-tender, non-distended, no organomegaly Musculoskeletal: Pulses present and equal in all extremities, no peripheral edema Neurological: Left-sided facial droop, valenzuela facies, drift of the left upper extremity and right upper extremity. Left upper extremity seems weaker than right upper extremity. Patient unable to hold up his right leg, unable to lift both legs. Skin: Intact with no visualized rashes ED course: 73-year-old male presents with altered mental status and strokelike symptoms. Code stroke paged. Blood glucose is 120. Laboratory evaluation obtained. No leukocytosis. There is minimal blastic anemia with a MCV of 121.3. Rest of CBC is grossly unremarkable. Coag panels INR 1.2. Urinalysis is likely subtherapeutic for patient. Reports that he hasn't taken his Coumadin or any of his medications for 3 months. Metabolic panel shows hypomagnesemia. Serum alcohol is negative. Computed tomography scan of the brain shows no acute processes. CT angios obtained showing lack of contrast enhancement of the venous sinuses raising possibility of cerebral vein thrombosis. he denies any headache. Discussed patient case with our radiology department supposedly we are unable to perform CT venograms. Patient is not compliant with medications. He hasn't taken his Coumadin at 3 months. We will start patient on heparin. We do not have neurology will transferred to [facility] for further care. Patient evaluated bedside. He is a well-appearing he is more responsive. Patient treated with thiamine and parent or magnesium. He seems to be much more responsive. Family at bedside and patient are agreeable with disposition. Discussed patient case with Dr. Wyatt [facility] was willing to accept the ER transfer. EKG interpretation: Ventricular rate 113, sinus tachycardia,. 192, QRS 70, QTc 436. No MI prolongation, no QTC prolongation, no ST or T-wave changes noted. Overall, this EKG is unremarkable - Related Data Home Medications Medication Instructions Recorded Confirmed Atorvastatin [Lipitor] 80 mg PO HS 07/31/15 03/20/16 Cholecalciferol [Vitamin D3 (25 1,000 unit PO DAILY 07/31/15 03/20/16 Mcg = 1000 Iu)] Meclizine [Antivert] 12.5 mg PO TID PRN 07/31/15 03/20/16 Vitamin B Complex 1 cap PO DAILY 07/31/15 03/20/16 Atenolol [Tenormin] 25 mg PO DAILY 03/20/16 03/20/16 Budesonide/Formoterol Fumarate 2 puff INHALATION RT-BID 03/20/16 03/20/16 [Symbicort 160-4.5 Mcg Inhaler] Sertraline [Zoloft] 50 mg PO DAILY 03/20/16 03/20/16 Tiotropium 18 Mcg/Puff [Spiriva] 1 cap INHALATION RT-DAILY 03/20/16 03/20/16 Warfarin [Coumadin] 3 mg PO DAILY 03/20/16 03/20/16 oxyCODONE-APAP 5-325MG [Percocet 2 tab PO Q4-6H PRN 03/20/16 03/20/16 5-325 mg] Previous Rx's Medication Instructions Recorded Clopidogrel [Plavix] 75 mg PO DAILY tab 08/13/14 Ipratropium-Albuterol Nebulize 3 ml INHALATION RT-TID ampul.jerica 08/13/14 [Duoneb 0.5 mg-3 mg/3 ml Soln] Omeprazole [PriLOSEC] 20 mg PO AC-BRKFST capsule. 08/13/14 Lidocaine 5% Patch [Lidoderm 5% 1 patch TOPICAL DAILY #1 box 02/09/18 Patch] Clindamycin HCl 300 mg PO Q6HR #40 cap 07/07/19 Allergies Allergy/AdvReac Type Severity Reaction Status Date / Time No Known Allergies Allergy Verified 07/07/19 14:59 Review of Systems ROS Statement: Those systems with pertinent positive or pertinent negative responses have been documented in the HPI. ROS Other: All systems not noted in ROS Statement are negative. Past Medical History Past Medical History: CVA/TIA, Hyperlipidemia, Hypertension, Myocardial Infarction ([place]), Osteoarthritis (OA) Additional Past Medical History / Comment(s): CATARACTS, GOUT Last Myocardial Infarction Date:: UNK History of Any Multi-Drug Resistant Organisms: None Reported Past Surgical History: Back Surgery, Orthopedic Surgery Additional Past Surgical History / Comment(s): RT SHOULDER SX Past Anesthesia/Blood Transfusion Reactions: No Reported Reaction Past Psychological History: No Psychological Hx Reported Smoking Status: Current every day smoker Past Alcohol Use History: Daily, Heavy Past Drug Use History: None Reported - Past Family History Father Family Medical History: Unable to Obtain Mother Family Medical History: Unable to Obtain Course Vital Signs 07/21/19 07/21/19 07/21/19 18:10 18:25 18:35 Temperature 97.5 F L Pulse Rate 110 H 107 H 105 H Respiratory 16 16 18 Rate Blood Pressure 157/117 149/99 174/104 O2 Sat by Pulse 98 98 99 Oximetry 07/21/19 07/21/19 07/21/19 18:40 18:42 18:55 Temperature 98.5 F Pulse Rate 100 107 H 99 Respiratory 16 16 16 Rate Blood Pressure 139/96 139/118 145/102 O2 Sat by Pulse 98 98 98 Oximetry 07/21/19 19:36 Temperature Pulse Rate 105 H Respiratory 18 Rate Blood Pressure 106/83 O2 Sat by Pulse 98 Oximetry Medical Decision Making - Lab Data Result diagrams: 07/21/19 18:15 07/21/19 18:15 Lab Results 07/21/19 07/21/1907/21/20 Range/Units 18:14 18:15 18:15 WBC (3.8-10.6) k/uL RBC (4.30-5.90) m/uL Hgb (13.0-17.5) gm/dL Hct (39.0-53.0) % MCV (80.0-100.0) fL MCH (25.0-35.0) pg MCHC (31.0-37.0) g/dL RDW (11.5-15.5) % Plt Count (150-450) k/uL Neutrophils % % Lymphocytes % % Monocytes % % Eosinophils % % Basophils % % Neutrophils # (1.3-7.7) k/uL Lymphocytes # (1.0-4.8) k/uL Monocytes # (0-1.0) k/uL Eosinophils # (0-0.7) k/uL Basophils # (0-0.2) k/uL Manual Slide Review Large Platelets Polychromasia Macrocytosis PT (9.0-12.0) sec INR (<1.2) APTT (22.0-30.0) sec Sodium 136 L (137-145) mmol/L Potassium 4.1 (3.5-5.1) mmol/L Chloride 96 L (98-107) mmol/L Carbon Dioxide 29 (22-30) mmol/L Anion Gap 11 mmol/L BUN 6 L (9-20) mg/dL Creatinine 0.70 (0.66-1.25) mg/dL Est GFR (CKD-EPI)AfAm >90 (>60 ml/min/1.73 sqM) Est GFR (CKD-EPI)NonAf >90 (>60 ml/min/1.73 sqM) Glucose 130 H (74-99) mg/dL POC Glucose (mg/dL) 123 H (75-99) mg/dL POC Glu Communications Program Manager ID KendalIgnacion Plasma Lactic Acid Jesus 2.0 (0.7-2.0) mmol/L Calcium 9.1 (8.4-10.2) mg/dL Magnesium 1.1 L (1.6-2.3) mg/dL Total Bilirubin 2.5 H (0.2-1.3) mg/dL AST 61 H (17-59) U/L ALT 27 (4-49) U/L Alkaline Phosphatase 138 H (38-126) U/L Total Creatine Kinase (55-170) U/L CK-MB (CK-2) (0.0-2.4) ng/mL CK-MB (CK-2) Rel Index Troponin I (0.000-0.034) ng/mL Total Protein 7.7 (6.3-8.2) g/dL Albumin 4.0 (3.5-5.0) g/dL Serum Alcohol <10 mg/dL 07/21/19 07/21/19 07/21/19 Range/Units 18:15 18:15 18:15 WBC 10.4 (3.8-10.6) k/uL RBC 4.43 (4.30-5.90) m/uL Hgb 17.8 H (13.0-17.5) gm/dL Hct 53.8 H (39.0-53.0) % MCV 121.3 H (80.0-100.0) fL MCH 40.3 H (25.0-35.0) pg MCHC 33.2 (31.0-37.0) g/dL RDW 15.1 (11.5-15.5) % Plt Count 225 (150-450) k/uL Neutrophils % 78 % Lymphocytes % 15 % Monocytes % 3 % Eosinophils % 1 % Basophils % 0 % Neutrophils # 8.1 H (1.3-7.7) k/uL Lymphocytes # 1.6 (1.0-4.8) k/uL Monocytes # 0.4 (0-1.0) k/uL Eosinophils # 0.1 (0-0.7) k/uL Basophils # 0.0 (0-0.2) k/uL Manual Slide Review Performed Large Platelets Present Polychromasia Present Macrocytosis Marked A PT 12.0 (9.0-12.0) sec INR 1.2 H (<1.2) APTT 24.3 (22.0-30.0) sec Sodium (137-145) mmol/L Potassium (3.5-5.1) mmol/L Chloride (98-107) mmol/L Carbon Dioxide (22-30) mmol/L Anion Gap mmol/L BUN (9-20) mg/dL Creatinine (0.66-1.25) mg/dL Est GFR (CKD-EPI)AfAm (>60 ml/min/1.73 sqM) Est GFR (CKD-EPI)NonAf (>60 ml/min/1.73 sqM) Glucose (74-99) mg/dL POC Glucose (mg/dL) (75-99) mg/dL POC Glu Communications Program Manager ID Plasma Lactic Acid Jesus (0.7-2.0) mmol/L Calcium (8.4-10.2) mg/dL Magnesium (1.6-2.3) mg/dL Total Bilirubin (0.2-1.3) mg/dL AST (17-59) U/L ALT (4-49) U/L Alkaline Phosphatase (38-126) U/L Total Creatine Kinase 96 (55-170) U/L CK-MB (CK-2) 0.9 (0.0-2.4) ng/mL CK-MB (CK-2) Rel Index 0.9 Troponin I <0.012 (0.000-0.034) ng/mL Total Protein (6.3-8.2) g/dL Albumin (3.5-5.0) g/dL Serum Alcohol mg/dL Critical Care Time Critical Care Time: Yes Total Critical Care Time: 31 Disposition Clinical Impression: Stroke-like symptoms Disposition: OTHER INSTITUTION NOT DEFINED Condition: Fair Referrals: [facility],Clinic [Primary Care Provider] - 1-2 days Time of Disposition: 19:58 - Out of Hospital Transfer - Req. Specs Out of Hospital Transfer - Requested Specifics: Other Emergency Center ([facility])
[2019-07-21 18:32] LABS: Basophils % (A) 0 %; Eosinophils # (A) 0.1 k/uL (0-0.7); Eosinophils % (A) 1 %; HCT 53.8 % (39.0-53.0); HGB 17.8 gm/dL (13.0-17.5); Lymphocytes # (A) 1.6 k/uL (1.0-4.8); Lymphocytes % (A) 15 %; MCH 40.3 pg (25.0-35.0); MCHC 33.2 g/dL (31.0-37.0); Macrocytosis Marked; Mean Platelet Volume 7.4; Monocytes # (A) 0.4 k/uL (0-1.0); Monocytes % (A) 3 %; Neutrophils # (A) 8.1 k/uL (1.3-7.7); Neutrophils % (A) 78 %; Platelet Count 225 k/uL (150-450); RBC 4.43 m/uL (4.30-5.90); RDW 15.1 % (11.5-15.5); WBC 10.4 k/uL (3.8-10.6)
[2019-07-21 18:38] LABS: ALT 27 U/L (4-49); AST 61 U/L (17-59); African American GFR (CKD) >90 (>60 ml/min/1.73 sqM); Alcohol <10 mg/dL; Alkaline Phosphatase 138 U/L (38-126); Anion Gap 11 mmol/L; Blood Urea Nitrogen 6 mg/dL (9-20); Calcium 9.1 mg/dL (8.4-10.2); Carbon Dioxide 29 mmol/L (22-30); Chloride 96 mmol/L (98-107); Glucose 130 mg/dL (74-99); Magnesium 1.1 mg/dL (1.6-2.3); Non-African American GFR(CKD) >90 (>60 ml/min/1.73 sqM); Potassium 4.1 mmol/L (3.5-5.1); Sodium 136 mmol/L (137-145); Total Bilirubin 2.5 mg/dL (0.2-1.3); Total Protein 7.7 g/dL (6.3-8.2)
[2019-07-21 18:40] LABS: INR 1.2 (<1.2); Partial Thromboplastin Time 24.3 sec (22.0-30.0)
[2019-07-21 18:44] LABS: MCV 121.3 fL (80.0-100.0)
[2019-07-21] MEDS ORDERED: THIAMINE 100 MG/ML 2 ML VIAL IVP STA (18:47)
[2019-07-21] MEDS ORDERED: THIAMINE 200 MG in SODIUM CHLORIDE 0.9% 100 ML IVPB STA (18:48)
--- NOTE | 2019-07-21 18:49 | CT ---
EXAMINATION TYPE: CT brain wo con for TPA DATE OF EXAM: 07/21/2019 COMPARISON: 07/05/2019 HISTORY: Altered mental status and slurred speech. CT DLP: 1138.8 mGycm Automated exposure control for dose reduction was used. Images are obtained of the brain with no contrast. There is cerebral cortical atrophy. There is no mass effect nor midline shift. There is no sign of in tracranial hemorrhage. There is mild prominence of the ventricles. There is mild hypodensity in the p eriventricular white matter. There is 1.5 x 0.7 cm hypodense area in the sumeet centrally. This is cons istent with an old lacunar infarct. Calvarium is intact. IMPRESSION: Cerebral atrophy and chronic small vessel ischemia. Old pontine lacunar infarct. No acute intracrania l abnormality. No change compared to last exam.
[2019-07-21 18:51] LABS: Creatine Kinase 96 U/L (55-170)
[2019-07-21] MEDS: MAGNESIUM SULFATE-D5W PMX 1 GM in DEXTROSE/WATER 1 100ML.BAG IVPB SCH ×2 (19:00→20:10)
--- NOTE | 2019-07-21 19:04 | CT ---
EXAMINATION TYPE: CT angio head neck DATE OF EXAM: 07/21/2019 COMPARISON: None HISTORY: Altered mental status and slurred speech. CT DLP: 382.1 mGycm Automated exposure control for dose reduction was used. CONTRAST: Performed with IV Contrast, patient injected with 65 mL of Isovue 370. There are 3-D post processed images. There is normal branching pattern of the great vessels on the aortic arch. There is bilateral arteria l flow in the subclavian arteries. There is arterial flow in the common internal and external carotid arteries bilaterally. There is mild plaque formation at the carotid artery bifurcations. Lumen narro wing as estimated 25% on the right side and 10% on the left side. There is no evidence of carotid or vertebral artery aneurysm or dissection. There is bilateral arterial flow in the vertebral arteries. Left vertebral artery is larger than the right. There is arterial flow in the vertebrobasilar artery system. Basilar artery fills from the left side. There is arterial flow in the anterior middle and posterior cerebral arteries. I see no evidence of i ntracranial arterial stenosis. There is no mass effect. There is no evidence of aneurysm or neovascul arity. There is a relative lack of contrast opacification of the venous sinuses. IMPRESSION: Minimal plaque formation at the carotid artery bifurcations without evidence of hemodynamic stenosis. No intracranial angiographic abnormality. No evidence of intracranial arterial stenosis. There is relative lack of contrast enhancement of the venous sinuses that raises the possibility of c erebral vein thrombosis.
[2019-07-21 19:05] LABS: Creatine Kinase MB 0.9 ng/mL (0.0-2.4); Troponin I <0.012 ng/mL (0.000-0.034)
[2019-07-21 19:06] LABS: Polychromasia Present
[2019-07-21 19:07] LABS: Large Platelets Present
--- NOTE | 2019-07-21 19:32 | XR ---
EXAMINATION TYPE: XR chest 2V DATE OF EXAM: 07/21/2019 COMPARISON: 01/15/2019 HISTORY: Altered mental status. Weakness. TECHNIQUE: FINDINGS: There is some mild linear density in the right middle lobe. The other lung brower are clear . There is no heart failure. There are chest leads. There are no hilar masses. Heart size is normal. Bony thorax is intact. IMPRESSION: Mild subsegmental atelectasis in the right middle lobe seen on the lateral view. Normal h eart. No significant change compared to old exam.
[2019-07-21] MEDS ORDERED: HEPARIN SODIUM,PORCINE 5,000 UNIT/ML 1 ML VIAL IV PRN ×2 (19:37)
[2019-07-21] MEDS ORDERED: HEPARIN SODIUM,PORCINE 5,000 UNIT/ML 1 ML VIAL IV ONE (19:37)
[2019-07-21] MEDS ORDERED: HEPARIN SOD,PORK IN 0.45% NACL 25,000 UNIT in 0.45% NACL 1 250ML.BAG IV SCH ×2 (19:45)
[2019-07-21 20:36] VITALS: BP 136/84; PULSE 111; RESP 16; TEMP 98.7
== END 2019-07-21 20:45 | disposition short-term general hospital (02) ==
LOC: EC 18:08
DX: I63.9 Cerebral infarction, unspecified (principal); G83.24 Monoplegia of upper limb affecting left nondominant side; R29.810 Facial weakness; E83.42 Hypomagnesemia; R00.0 Tachycardia, unspecified; D64.9 Anemia, unspecified; R06.2 Wheezing; Z91.14 Patient's other noncompliance with medication regimen; E78.5 Hyperlipidemia, unspecified; I10 Essential (primary) hypertension; I25.2 Old myocardial infarction; M19.90 Unspecified osteoarthritis, unspecified site; M10.9 Gout, unspecified; F17.200 Nicotine dependence, unspecified, uncomplicated; Z79.01 Long term (current) use of anticoagulants; Z79.51 Long term (current) use of inhaled steroids; Z79.891 Long term (current) use of opiate analgesic; Z79.899 Other long term (current) drug therapy; Z98.890 Other specified postprocedural states
CPT/HCPCS: 99291 ×2; 96365 ×2; 96366 ×2; 96368 ×2; 96375 ×2; 36415; 93005; 80053; 82550; 82553; 83605; 83735; 84484; 85025; 85610; 85730; 80320; 71046; 70496; 70450; 70498; J1644 ×2; J3411; J3475; Q9967

== ENCOUNTER 2019-08-07 00:27 | Inpatient (IN) | payer OTHER, MEDICARE ==
[2019-08-07 00:54] LABS: Glucose,Whole Blood 95 mg/dL (75-99)
[2019-08-07] MEDS: SODIUM CHLORIDE 0.9% 500 ML 500 ML IV SCH ×2 (01:15→01:16)
[2019-08-07 01:20] LABS: Basophils % (A) 0 %; Eosinophils # (A) 0.1 k/uL (0-0.7); Eosinophils % (A) 1 %; HCT 49.9 % (39.0-53.0); HGB 16.2 gm/dL (13.0-17.5); Hypochromasia Slight; Lymphocytes # (A) 1.1 k/uL (1.0-4.8); Lymphocytes % (A) 6 %; MCHC 32.4 g/dL (31.0-37.0); MCV 120.3 fL (80.0-100.0); Macrocytosis Marked; Mean Platelet Volume 8.7; Monocytes # (A) 0.6 k/uL (0-1.0); Monocytes % (A) 3 %; Neutrophils # (A) 15.9 k/uL (1.3-7.7); Neutrophils % (A) 88 %; Platelet Count 230 k/uL (150-450); RBC 4.15 m/uL (4.30-5.90); RDW 15.2 % (11.5-15.5)
[2019-08-07 01:32] LABS: Calcium 8.7 mg/dL (8.4-10.2); Potassium 4.9 mmol/L (3.5-5.1); Total Bilirubin 0.7 mg/dL (0.2-1.3); Total Protein 6.8 g/dL (6.3-8.2)
[2019-08-07 01:46] LABS: Appearance,Urine Cloudy (Clear); Bacteria,Urine Rare /hpf; Bilirubin,Urine Negative (Negative); Blood,Urine Small (Negative); Color,Urine Yellow; Glucose,Urine (UA) Negative (Negative); Ketones,Urine Negative (Negative); Leukocyte Esterase,Urine Small (Negative); Mucus,Urine Rare /hpf; Nitrite,Urine Negative (Negative); PH, Urine 5.5 (5.0-8.0); Protein,Urine 1+ (Negative); RBC,Urine 1 /hpf (0-5); Specific Gravity,Urine 1.022 (1.001-1.035); Squamous Epithelial Cell,Urine <1 /hpf (0-4); Urobilinogen,Urine <2.0 mg/dL (<2.0); WBC,Urine 8 /hpf (0-5)
--- NOTE | 2019-08-07 01:48 | XR ---
EXAMINATION TYPE: XR chest 1V portable DATE OF EXAM: 08/07/2019 COMPARISON: 07/21/2019 HISTORY: Fever TECHNIQUE: FINDINGS: AP upright portable view shows no heart failure. There is some mild infiltrate in the left lower lobe behind the heart. There is no definite pleural effusion. There are chest leads. IMPRESSION: Inspiration is decreased compared to old exam. There is new mild infiltrate and atelectas is left lower lobe compared to last exam.
[2019-08-07] MEDS ORDERED: VANCOMYCIN IV PER PHARMACY 1 EACH MISC MISCELLANE PRN (01:56)
[2019-08-07] MEDS ORDERED: PIPERACILLIN-TAZOBACTAM 3.375 GM in SODIUM CHLORIDE 0.9% 100 ML IVPB STA (01:58)
[2019-08-07] MEDS ORDERED: VANCOMYCIN 1,000 MG in SODIUM CHLORIDE 0.9% 250 ML IVPB STA (01:58)
[2019-08-07 02:10] LABS: INR 1.5 (<1.2); Partial Thromboplastin Time 29.8 sec (22.0-30.0); Prothrombin Time 14.4 sec (9.0-12.0)
--- NOTE | 2019-08-07 02:17 | ED ---
Altered Mental Status HPI - General Chief Complaint: Altered Mental Status Stated Complaint: altered mental status Time Seen by Provider: 08/07/19 00:32 Source: patient Mode of arrival: EMS Limitations: no limitations - History of Present Illness Initial Comments: Roney is a 73 -year-old male with extensive past medical history most significant for recent CVA, patient subsequently failed a swallow exam but was unwilling to have a PEG tube placed therefore has still been taking oral intake. Patient is brought to the ER today by ambulance for evaluation of worsening lab results on outpatient labs, dehydration a concern for infection. [facility] the patient was given 1 L of D5 half-normal earlier in the day due to dehydration however his status didn't improve so they decided to the ER for further evaluation - Related Data Home Medications Medication Instructions Recorded Confirmed Atorvastatin [Lipitor] 80 mg PO HS 07/31/15 03/20/16 Cholecalciferol [Vitamin D3 (25 1,000 unit PO DAILY 07/31/15 03/20/16 Mcg = 1000 Iu)] Meclizine [Antivert] 12.5 mg PO TID PRN 07/31/15 03/20/16 Vitamin B Complex 1 cap PO DAILY 07/31/15 03/20/16 Atenolol [Tenormin] 25 mg PO DAILY 03/20/16 03/20/16 Budesonide/Formoterol Fumarate 2 puff INHALATION RT-BID 03/20/16 03/20/16 [Symbicort 160-4.5 Mcg Inhaler] Sertraline [Zoloft] 50 mg PO DAILY 03/20/16 03/20/16 Tiotropium 18 Mcg/Puff [Spiriva] 1 cap INHALATION RT-DAILY 03/20/16 03/20/16 Warfarin [Coumadin] 3 mg PO DAILY 03/20/16 03/20/16 oxyCODONE-APAP 5-325MG [Percocet 2 tab PO Q4-6H PRN 03/20/16 03/20/16 5-325 mg] Previous Rx's Medication Instructions Recorded Clopidogrel [Plavix] 75 mg PO DAILY tab 08/13/14 Ipratropium-Albuterol Nebulize 3 ml INHALATION RT-TID ampul.neb 08/13/14 [Duoneb 0.5 mg-3 mg/3 ml Soln] Omeprazole [PriLOSEC] 20 mg PO AC-BRKFST capsule. 08/13/14 Lidocaine 5% Patch [Lidoderm 5% 1 patch TOPICAL DAILY #1 box 02/09/18 Patch] Clindamycin HCl 300 mg PO Q6HR #40 cap 07/07/19 Allergies Allergy/AdvReac Type Severity Reaction Status Date / Time No Known Allergies Allergy Verified 08/07/19 00:45 Review of Systems ROS Statement: Those systems with pertinent positive or pertinent negative responses have been documented in the HPI. ROS Other: All systems not noted in ROS Statement are negative. Past Medical History Past Medical History: CVA/TIA, Hyperlipidemia, Hypertension, Myocardial Infarction ([place]), Osteoarthritis ([place]) Additional Past Medical History / Comment(s): CATARACTS, GOUT Last Myocardial Infarction Date:: UNK History of Any Multi-Drug Resistant Organisms: None Reported Past Surgical History: Back Surgery, Orthopedic Surgery Additional Past Surgical History / Comment(s): RT SHOULDER SX Past Anesthesia/Blood Transfusion Reactions: No Reported Reaction Past Psychological History: No Psychological Hx Reported Smoking Status: Current every day smoker Past Alcohol Use History: Daily, Heavy Past Drug Use History: None Reported - Past Family History Father Family Medical History: Unable to Obtain Mother Family Medical History: Unable to Obtain General Exam - General Exam Comments Initial Comments: Physical Exam GENERAL: Chronically ill appearing debilitated dehydrated elderly gentleman HENT: Normocephalic, Atraumatic. Dry mucous membranes EYES: PERRL, EOMI PULMONARY: Decreased respiratory effort Course breath sounds bilaterally CARDIOVASCULAR: Regular rate and rhythm ABDOMEN: Soft and nontender with normal bowel sounds. SKIN: Increased skin turgor attempting : Deferred NEUROLOGIC: Alert and oriented to self able to identify he is in the hospital MUSCULOSKELETAL: No obvious injury or deformity PSYCHIATRIC: Unable to assess Limitations: no limitations Course Vital Signs 08/07/19 08/07/19 00:29 02:19 Temperature 98 F Pulse Rate 90 94 Respiratory 15 18 Rate Blood Pressure 154/90 147/87 O2 Sat by Pulse 97 96 Oximetry Medical Decision Making - Medical Decision Making Patient was seen and evaluated immediately upon arrival Patient altered, very dehydrated, septic Sepsis workup ordered Labs with multiple abnormalities, concerning for hypernatremia likely due to decreased PO intake CXR with evidence of pneumonia - concerning recent hospitalizations will treat with broad spectrum antibiotics IVF ordered - LR at 130 Patient will be admitted for sepsis secondary to pneumonia, profound dehydration Patient care discussed with admitting physician Dr. Gould, discussed possible consult to Hospice - Lab Data Result diagrams: 08/07/19 01:10 08/07/19 01:10 Lab Results 08/07/19 08/07/19 08/07/19 Range/Units 00:52 01:10 01:10 WBC 18.0 H (3.8-10.6) k/uL RBC 4.15 L (4.30-5.90) m/uL Hgb 16.2 (13.0-17.5) gm/dL Hct 49.9 (39.0-53.0) % MCV 120.3 H (80.0-100.0) fL MCH 39.0 H (25.0-35.0) pg MCHC 32.4 (31.0-37.0) g/dL RDW 15.2 (11.5-15.5) % Plt Count 230 (150-450) k/uL Neutrophils % 88 % Lymphocytes % 6 % Monocytes % 3 % Eosinophils % 1 % Basophils % 0 % Neutrophils # 15.9 H (1.3-7.7) k/uL Lymphocytes # 1.1 (1.0-4.8) k/uL Monocytes # 0.6 (0-1.0) k/uL Eosinophils # 0.1 (0-0.7) k/uL Basophils # 0.0 (0-0.2) k/uL Manual Slide Review Performed Hypochromasia Slight Macrocytosis Marked A PT (9.0-12.0) sec INR (<1.2) APTT (22.0-30.0) sec Sodium 150 H (137-145) mmol/L Potassium 4.9 (3.5-5.1) mmol/L Chloride 121 H (98-107) mmol/L Carbon Dioxide 24 (22-30) mmol/L Anion Gap 5 mmol/L BUN 40 H (9-20) mg/dL Creatinine 1.04 (0.66-1.25) mg/dL Est GFR (CKD-EPI)AfAm 84 (>60 ml/min/1.73 sqM) Est GFR (CKD-EPI)NonAf 72 (>60 ml/min/1.73 sqM) Glucose 107 H (74-99) mg/dL POC Glucose (mg/dL) 95 (75-99) mg/dL POC Glu Pole [employer] Construction Worker ID Britany Ornelas Plasma Lactic Acid Jesus (0.7-2.0) mmol/L Calcium 8.7 (8.4-10.2) mg/dL Total Bilirubin 0.7 (0.2-1.3) mg/dL AST 88 H (17-59) U/L ALT 58 H (4-49) U/L Alkaline Phosphatase 157 H (38-126) U/L Total Protein 6.8 (6.3-8.2) g/dL Albumin 3.0 L (3.5-5.0) g/dL Urine Color Urine Appearance (Clear) Urine pH (5.0-8.0) Ur Specific Lam[place] (1.001-1.035) Urine Protein (Negative) Urine Glucose (UA) (Negative) Urine Ketones (Negative) Urine Blood (Negative) Urine Nitrite (Negative) Urine Bilirubin (Negative) Urine Urobilinogen (<2.0) mg/dL Ur Leukocyte Esterase (Negative) Urine RBC (0-5) /hpf Urine WBC (0-5) /hpf Ur Squamous Epith Cells (0-4) /hpf Urine Bacteria (None) /hpf Urine Mucus (None) /hpf Influenza Type A RNA (Not Detectd) Influenza Type B (PCR) (Not Detectd) RSV (PCR) (Negative) 08/07/19 08/07/19 08/07/19 Range/Units 01:10 01:10 01:30 WBC (3.8-10.6) k/uL RBC (4.30-5.90) m/uL Hgb (13.0-17.5) gm/dL Hct (39.0-53.0) % MCV (80.0-100.0) fL MCH (25.0-35.0) pg MCHC (31.0-37.0) g/dL RDW (11.5-15.5) % Plt Count (150-450) k/uL Neutrophils % % Lymphocytes % % Monocytes % % Eosinophils % % Basophils % % Neutrophils # (1.3-7.7) k/uL Lymphocytes # (1.0-4.8) k/uL Monocytes # (0-1.0) k/uL Eosinophils # (0-0.7) k/uL Basophils # (0-0.2) k/uL Manual Slide Review Hypochromasia Macrocytosis PT (9.0-12.0) sec INR (<1.2) APTT (22.0-30.0) sec Sodium (137-145) mmol/L Potassium (3.5-5.1) mmol/L Chloride (98-107) mmol/L Carbon Dioxide (22-30) mmol/L Anion Gap mmol/L BUN (9-20) mg/dL Creatinine (0.66-1.25) mg/dL Est GFR (CKD-EPI)AfAm (>60 ml/min/1.73 sqM) Est GFR (CKD-EPI)NonAf (>60 ml/min/1.73 sqM) Glucose (74-99) mg/dL POC Glucose (mg/dL) (75-99) mg/dL POC Glu Pole [employer] Construction Worker ID Plasma Lactic Acid Jesus 1.5 (0.7-2.0) mmol/L Calcium (8.4-10.2) mg/dL Total Bilirubin (0.2-1.3) mg/dL AST (17-59) U/L ALT (4-49) U/L Alkaline Phosphatase (38-126) U/L Total Protein (6.3-8.2) g/dL Albumin (3.5-5.0) g/dL Urine Color Yellow Urine Appearance Cloudy (Clear) Urine pH 5.5 (5.0-8.0) Ur Specific Lam[place] 1.022 (1.001-1.035) Urine Protein 1+ H (Negative) Urine Glucose (UA) Negative (Negative) Urine Ketones Negative (Negative) Urine Blood Small H (Negative) Urine Nitrite Negative (Negative) Urine Bilirubin Negative (Negative) Urine Urobilinogen <2.0 (<2.0) mg/dL Ur Leukocyte Esterase Small H (Negative) Urine RBC 1 (0-5) /hpf Urine WBC 8 H (0-5) /hpf Ur Squamous Epith Cells <1 (0-4) /hpf Urine Bacteria Rare H (None) /hpf Urine Mucus Rare H (None) /hpf Influenza Type A RNA Not Detected (Not Detectd) Influenza Type B (PCR) Not Detected (Not Detectd) RSV (PCR) Negative (Negative) 08/07/19 Range/Units 01:35 WBC (3.8-10.6) k/uL RBC (4.30-5.90) m/uL Hgb (13.0-17.5) gm/dL Hct (39.0-53.0) % MCV (80.0-100.0) fL MCH (25.0-35.0) pg MCHC (31.0-37.0) g/dL RDW (11.5-15.5) % Plt Count (150-450) k/uL Neutrophils % % Lymphocytes % % Monocytes % % Eosinophils % % Basophils % % Neutrophils # (1.3-7.7) k/uL Lymphocytes # (1.0-4.8) k/uL Monocytes # (0-1.0) k/uL Eosinophils # (0-0.7) k/uL Basophils # (0-0.2) k/uL Manual Slide Review Hypochromasia Macrocytosis PT 14.4 H (9.0-12.0) sec INR 1.5 H (<1.2) APTT 29.8 (22.0-30.0) sec Sodium (137-145) mmol/L Potassium (3.5-5.1) mmol/L Chloride (98-107) mmol/L Carbon Dioxide (22-30) mmol/L Anion Gap mmol/L BUN (9-20) mg/dL Creatinine (0.66-1.25) mg/dL Est GFR (CKD-EPI)AfAm (>60 ml/min/1.73 sqM) Est GFR (CKD-EPI)NonAf (>60 ml/min/1.73 sqM) Glucose (74-99) mg/dL POC Glucose (mg/dL) (75-99) mg/dL POC Glu [employer] Construction Worker ID Plasma Lactic Acid Jesus (0.7-2.0) mmol/L Calcium (8.4-10.2) mg/dL Total Bilirubin (0.2-1.3) mg/dL AST (17-59) U/L ALT (4-49) U/L Alkaline Phosphatase (38-126) U/L Total Protein (6.3-8.2) g/dL Albumin (3.5-5.0) g/dL Urine Color Urine Appearance (Clear) Urine pH (5.0-8.0) Ur Specific [place] (1.001-1.035) Urine Protein (Negative) Urine Glucose (UA) (Negative) Urine Ketones (Negative) Urine Blood (Negative) Urine Nitrite (Negative) Urine Bilirubin (Negative) Urine Urobilinogen (<2.0) mg/dL Ur Leukocyte Esterase (Negative) Urine RBC (0-5) /hpf Urine WBC (0-5) /hpf Ur Squamous Epith Cells (0-4) /hpf Urine Bacteria (None) /hpf Urine Mucus (None) /hpf Influenza Type A RNA (Not Detectd) Influenza Type B (PCR) (Not Detectd) RSV (PCR) (Negative) - EKG Data -: EKG Interpreted by Me EKG shows normal: sinus rhythm EKG Comments: She was obtained as well as subjective ordered, EKG obtained at 12:49 AM, rate is 91 rhythm sinus normal axis, normal intervals [place] 188, QRS 88, QTC [address] elevations or depressions no evidence of acute ischemia or infarction Disposition Clinical Impression: Pneumonia, Sepsis, UTI (urinary tract infection) Disposition: ADMITTED IP TO THIS HOSP Condition: Serious Is patient prescribed a controlled substance at d/c from ED?: No
[2019-08-07] MEDS ORDERED: NALOXONE 0.4 MG/ML 1 ML VIAL IV PRN (02:25)
[2019-08-07] MEDS ORDERED: SODIUM CHLORIDE 0.9% 1,000 ML IV SCH (02:30)
[2019-08-07] MEDS ORDERED: LACTATED RINGERS 1,000 ML IV ONE (02:30)
[2019-08-07] MEDS: PIPERACILLIN-TAZOBACTAM 3.375 GM in SODIUM CHLORIDE 0.9% 100 ML IVPB SCH ×2 (10:40→18:34)
[2019-08-07 11:45] LABS: Glucose,Whole Blood 101 mg/dL (75-99)
[2019-08-07 12:28] VITALS: BMI 20.9
--- NOTE | 2019-08-07 13:34 | P.HPIM ---
History of Present Illness 73-year-old male admitted for possible aspiration pneumonia. Patient recently had a CVA after which patient the clinical condition has worsened patient declined PEG tube patient is still on by mouth feedings. Patient is unable to provide many history patient is arousable with verbal and tactile stimuli he appears to be severely lethargic unable to provide me any history. I still have to talk to the family. Patient was sent in here for possible dehydration patient clinically appears to be quite a bit dehydrated with hyp ernatremia. Chest x-ray is suspicious for aspiration in the left lower lung brower exam is quite a bit limited as patient cannot provide any history and family is not available at this time. Although patient appears obtunded Review of Systems Unable to obtain Past Medical History Past Medical History: CVA/TIA, Hyperlipidemia, Hypertension, Myocardial Infarction ([place]), Osteoarthritis (OA) Additional Past Medical History / Comment(s): CATARACTS, GOUT Last Myocardial Infarction Date:: UNK History of Any Multi-Drug Resistant Organisms: None Reported Past Surgical History: Back Surgery, Orthopedic Surgery Additional Past Surgical History / Comment(s): RT SHOULDER SX Past Anesthesia/Blood Transfusion Reactions: No Reported Reaction Past Psychological History: No Psychological Hx Reported Smoking Status: Current every day smoker Past Alcohol Use History: Daily, Heavy Past Drug Use History: None Reported - Past Family History Father Family Medical History: Unable to Obtain Mother Family Medical History: Unable to Obtain Medications and Allergies Home Medications Medication Instructions Recorded Confirmed Type Clopidogrel [Plavix] 75 mg PO DAILY tab 08/13/14 03/20/16 Rx Ipratropium-Albuterol Nebulize 3 ml INHALATION RT-TID ampul.neb 08/13/14 03/20/16 Rx [Duoneb 0.5 mg-3 mg/3 ml Soln] Omeprazole [PriLOSEC] 20 mg PO AC-[id number] capsule. 08/13/14 03/20/16 Rx Atorvastatin [Lipitor] 80 mg PO HS 07/31/15 03/20/16 History Cholecalciferol [Vitamin D3 (25 1,000 unit PO DAILY 07/31/15 03/20/16 History Mcg = 1000 Iu)] Meclizine [Antivert] 12.5 mg PO TID PRN 07/31/15 03/20/16 History Vitamin B Complex 1 cap PO DAILY 07/31/15 03/20/16 History Atenolol [Tenormin] 25 mg PO DAILY 03/20/16 03/20/16 History Budesonide/Formoterol Fumarate 2 puff INHALATION RT-BID 03/20/16 03/20/16 History [Symbicort 160-4.5 Mcg Inhaler] Sertraline [Zoloft] 50 mg PO DAILY 03/20/16 03/20/16 History Tiotropium 18 Mcg/Puff [Spiriva] 1 cap INHALATION RT-DAILY 03/20/16 03/20/16 History Warfarin [Coumadin] 3 mg PO DAILY 03/20/16 03/20/16 History oxyCODONE-APAP 5-325MG [Percocet 2 tab PO Q4-6H PRN 03/20/16 03/20/16 History 5-325 mg] Lidocaine 5% Patch [Lidoderm 5% 1 patch TOPICAL DAILY #1 box 02/09/18 Rx Patch] Clindamycin HCl 300 mg PO Q6HR #40 cap 07/07/19 Rx Allergies Allergy/AdvReac Type Severity Reaction Status Date / Time No Known Allergies Allergy Verified 08/07/19 11:58 Physical Exam Vitals: Vital Signs Temp Pulse Pulse Resp BP BP Pulse Ox 08/07/19 06:00 98.0 F 86 15 118/68 94 L 08/07/19 03:27 98.3 F 91 18 121/79 97 08/07/19 02:19 94 18 147/87 96 08/07/19 00:29 98 F 90 15 154/90 97 Intake and Output 08/06/19 08/07/19 08/07/19 22:59 06:59 14:59 Output Total 200 Balance -200 Output: Urine 200 Other: Weight 58.967 kg 58.967 kg PHYSICAL EXAMINATION: GENERAL: He appears dry dehydrated up tended arousable excessively lethargic, but they Probably because of lactic acidosis lactic acid level will be obtained thin built HEENT: Pupils are round and equally reacting to light. EOMI. No scleral icterus. No conjunctival pallor. Normocephalic, atraumatic. No pharyngeal erythema. No thyromegaly. Dry mucous membranes and skin laxity CARDIOVASCULAR: S1 and S2 present. No murmurs, rubs, or gallops. PULMONARY: Chest is clear to auscultation, no wheezing or crackles. ABDOMEN: Soft, nontender, nondistended, normoactive bowel sounds. No palpable organomegaly. MUSCULOSKELETAL: No joint swelling or deformity. EXTREMITIES: No cyanosis, clubbing, or pedal edema. NEUROLOGICAL: Unable to assess SKIN: No rashes. Results CBC & Chem 7: 08/07/19 01:10 08/07/19 01:10 Labs: Abnormal Lab Results - Last 24 Hours (Table) 08/07/19 08/07/19 08/07/19 Range/Units 01:10 01:10 01:30 WBC 18.0 H (3.8-10.6) k/uL RBC 4.15 L (4.30-5.90) m/uL MCV 120.3 H (80.0-100.0) fL MCH 39.0 H (25.0-35.0) pg Neutrophils # 15.9 H (1.3-7.7) k/uL Macrocytosis Marked A PT (9.0-12.0) sec INR (<1.2) Sodium 150 H (137-145) mmol/L Chloride 121 H (98-107) mmol/L BUN 40 H (9-20) mg/dL Glucose 107 H (74-99) mg/dL POC Glucose (mg/dL) (75-99) mg/dL AST 88 H (17-59) U/L ALT 58 H (4-49) U/L Alkaline Phosphatase 157 H (38-126) U/L Albumin 3.0 L (3.5-5.0) g/dL Urine Protein 1+ H (Negative) Urine Blood Small H (Negative) Ur Leukocyte Esterase Small H (Negative) Urine WBC 8 H (0-5) /hpf Urine Bacteria Rare H (None) /hpf Urine Mucus Rare H (None) /hpf 08/07/19 08/07/19 Range/Units 01:35 11:43 WBC (3.8-10.6) k/uL RBC (4.30-5.90) m/uL MCV (80.0-100.0) fL MCH (25.0-35.0) pg Neutrophils # (1.3-7.7) k/uL Macrocytosis PT 14.4 H (9.0-12.0) sec INR 1.5 H (<1.2) Sodium (137-145) mmol/L Chloride (98-107) mmol/L BUN (9-20) mg/dL Glucose (74-99) mg/dL POC Glucose (mg/dL) 101 H (75-99) mg/dL AST (17-59) U/L ALT (4-49) U/L Alkaline Phosphatase (38-126) U/L Albumin (3.5-5.0) g/dL Urine Protein (Negative) Urine Blood (Negative) Ur Leukocyte Esterase (Negative) Urine WBC (0-5) /hpf Urine Bacteria (None) /hpf Urine Mucus (None) /hpf Thrombosis Risk Factor Assmnt - Choose All That Apply Each Risk Factor Represents 2 Points: Age 61-74 years Thrombosis Risk Factor Assessment Total Risk Factor Score: 2 Thrombosis Risk Factor Assessment Level: Low Risk Assessment and Plan Plan: Possible aspiration pneumonia for which patient is on Zosyn patient is also on vancomycin which will be continued for now but cultures were obtained awaiting blood cultures -Severe dehydration leading to acute renal failure, patient was started on half- normal saline lactic acid level will be obtained -Severe metabolic encephalopathy secondary to dehydration -Hypernatremia hypovolemic hyponatremia patient was started on half-normal saline as mentioned above Patient had a recent stroke declined PEG tube unable to feed patient is more appropriate for comfort care and hospice will discuss with the family regarding this patient is presently D DO NOT RESUSCITATE CVA TIA and neck line-hyperlipidemia -Hypertension -Osteoarthritis -Coronary artery disease -Nicotine abuse history -Macrocytic anemia probably B12 or folate deficiency because of poor peripheral intake -Moderate to severe malnutrition Above-mentioned chronic medical problems patient is on multiple medications but unable to give any as patient is not awake enough to take any medications. Patient will be hydrated continue with the IV fluids IV antibiotics will discuss with the family regarding his overall goals of care patient doesn't have a PEG tube failed swallow evaluation in the past patient declined PEG tube in the past and family doesn't want any PEG tube because of which patient is nutritionally deficient and dehydrated -CODE STATUS DO NOT RESUSCITATE
[2019-08-07 17:06] LABS: Glucose,Whole Blood 102 mg/dL (75-99)
[2019-08-07] MEDS: metroNIDAZOLE-NS PMX 500 MG in SALINE 1 100ML.BAG IVPB SCH (17:31)
[2019-08-07] MEDS: SODIUM CHLORIDE 0.45% 1,000 ML IV SCH ×2 (17:31→23:40)
[2019-08-07] MEDS: NYSTATIN 100,000 UNIT/ML SUSP 500,000 UNIT/5 ML CUP PO SCH ×2 (17:37→22:40)
[2019-08-07] MEDS ORDERED: VANCOMYCIN 1,000 MG in SODIUM CHLORIDE 0.9% 250 ML IVPB SCH (19:00)
[2019-08-07 20:13] LABS: Glucose,Whole Blood 103 mg/dL (75-99)
[2019-08-08] MEDS: metroNIDAZOLE-NS PMX 500 MG in SALINE 1 100ML.BAG IVPB SCH ×3 (00:22→16:28)
[2019-08-08] MEDS: PIPERACILLIN-TAZOBACTAM 3.375 GM in SODIUM CHLORIDE 0.9% 100 ML IVPB SCH (02:18)
[2019-08-08] MEDS ORDERED: ACETAMINOPHEN IV (For NPO) 1,000 MG in EMPTY BAG 1 BAG IVPB ONE (03:13)
[2019-08-08 07:13] LABS: Glucose,Whole Blood 98 mg/dL (75-99)
[2019-08-08 07:47] LABS: Calcium 8.5 mg/dL (8.4-10.2); Potassium 3.1 mmol/L (3.5-5.1)
[2019-08-08 07:59] LABS: HGB 14.4 gm/dL (13.0-17.5); Hypochromasia Slight; MCH 39.6 pg (25.0-35.0); MCHC 32.7 g/dL (31.0-37.0); Macrocytosis Marked; Mean Platelet Volume 9.3; Platelet Count 194 k/uL (150-450); RBC 3.64 m/uL (4.30-5.90); RDW 15.2 % (11.5-15.5)
[2019-08-08] MEDS: NYSTATIN 100,000 UNIT/ML SUSP 500,000 UNIT/5 ML CUP PO SCH ×4 (08:19→22:51)
[2019-08-08] MEDS: SODIUM CHLORIDE 0.45% 1,000 ML IV SCH ×2 (08:20→19:50)
[2019-08-08] MEDS ORDERED: Potassium Replacement Protocol 1 EACH MISC MISCELLANE PRN (08:53)
[2019-08-08] MEDS: POTASSIUM CHLORIDE 10 MEQ in WATER FOR INJECTION 1 100ML.BAG IVPB SCH ×4 (09:58→13:34)
--- NOTE | 2019-08-08 10:32 | P.CONS ---
History of Present Illness - Reason for Consult Consult date: 08/07/19 c diff and ? pneumonia Requesting physician: Bart Xavier - Chief Complaint abnormal labs x 1 day - History of Present Illness Patient is a 73-year male with a past medical history significant for recent diagnosis of CVA apparently the patient did fail his swallow test and was offered a PEG tube which the patient refused as the patient has been taking oral the patient has been brought into the ER at [facility] with a chief complaints of worsening labs in the outpatient setting of dehydration and concern for infection apparently patient was noticed to have a elevated white of 18,000 as well as elevated BUN patient UA has been mildly positive influenza and RSV PCR was negative patient did have a chest x-ray new mild infiltrate atelec tasis left lower lobe compared to last exam with concern for possible her pneumonia the patient be started on vancomycin and Zosyn subsequently patient was noticed to have multiple loose stools foul-smelling about 3 episodes today per the nursing staff stool for C. difficile was sent which came back positive patient was started on IV Flagyl as the patient is currently unable to take any meds by mouth and infectious was consulted for further recommendation about antibiotic most information has been obtained from review the chart and talking nursing staff the patient himself is unable provide any history. Review of Systems Positive points mentioned in history of present illness complete review could not be obtained because of his underlying medical condition Past Medical History Past Medical History: CVA/TIA, Hyperlipidemia, Hypertension, Myocardial Infarction ([place]), Osteoarthritis (OA) Additional Past Medical History / Comment(s): CATARACTS, GOUT Last Myocardial Infarction Date:: UNK History of Any Multi-Drug Resistant Organisms: None Reported Past Surgical History: Back Surgery, Orthopedic Surgery Additional Past Surgical History / Comment(s): RT SHOULDER SX Past Anesthesia/Blood Transfusion Reactions: No Reported Reaction Past Psychological History: No Psychological Hx Reported Smoking Status: Current every day smoker Past Alcohol Use History: Daily, Heavy Past Drug Use History: None Reported - Past Family History Father Family Medical History: Unable to Obtain Mother Family Medical History: Unable to Obtain Medications and Allergies Home Medications Medication Instructions Recorded Confirmed Type Atorvastatin [Lipitor] 80 mg PO HS@2100 07/31/15 08/07/19 History Cholecalciferol [Vitamin D3 (25 1,000 unit PO DAILY@0900 07/31/15 08/07/19 History Mcg = 1000 Iu)] Atenolol [Tenormin] 25 mg PO DAILY@0900 03/20/16 08/07/19 History Budesonide/Formoterol Fumarate 2 puff INHALATION RT-BID 03/20/16 08/07/19 Hi story [Symbicort 160-4.5 Mcg Inhaler] Aspirin 81 mg PO DAILY@0900 08/07/19 08/07/19 History Cefuroxime Axetil [Ceftin] 500 mg PO BID 08/07/19 08/07/19 History Dextrose-Sodium Chloride Solution 70 ml IV Q12H 08/07/19 08/07/19 History 5-0.45% Enoxaparin Sodium 40 mg SQ DAILY@1700 08/07/19 08/07/19 History Ensure Clear 237 ml PO TID@0800,1200,1700 08/07/19 08/07/19 History Esomeprazole Magnesium [NexIUM] 40 mg PO DAILY@0900 08/07/19 08/07/19 History Ipratropium-Albuterol Nebulize 3 ml INHALATION RT-Q6H PRN 08/07/19 08/07/19 History [Duoneb 0.5 mg-3 mg/3 ml Soln] Lactose-Reduced Food [Ensure Plus] 240 ml PO BID@0900,1700 08/07/19 08/07/19 History Nicotine 14Mg/24Hr Patch [Habitrol 1 patch TRANSDERM DAILY@0900 08/07/19 08/07/19 History 14Mg/24Hr Patch] Sertraline HCl [Zoloft] 50 mg PO DAILY@0900 08/07/19 08/07/19 History Ticagrelor [Brilinta] 90 mg PO BID@0900,2100 08/07/19 08/07/19 History Tiotropium [place] [Spiriva] 1 cap INHALATION RT-DAILY 08/07/19 08/07/19 History Allergies Allergy/AdvReac Type Severity Reaction Status Date / Time No Known Allergies Allergy Verified 08/07/19 14:39 Physical Exam Vitals: Vital Signs Temp Pulse Pulse Resp BP BP Pulse Ox 08/07/19 21:00 97.1 F L 104 H 20 136/87 99 08/07/19 13:19 99.3 F 114 H 20 125/85 97 08/07/19 06:00 98.0 F 86 15 118/68 94 L 08/07/19 03:27 98.3 F 91 18 121/79 97 08/07/19 02:19 94 18 147/87 96 08/07/19 00:29 98 F 90 15 154/90 97 Intake and Output 08/07/19 08/07/19 08/08/19 14:59 22:59 06:59 Intake Total 0 0 Output Total 401 200 Balance -401 -200 Intake: Oral 0 0 Output: Urine 400 200 Stool 1 Other: Weight 58.967 kg GENERAL DESCRIPTION: Elderly male lying in bed, no distress. No tachypnea or accessory muscle of respiration use. HEENT: Shows Pallor , no scleral icterus. Oral mucous membrane is dry. No pharyngeal erythema or thrush NECK: Trachea central, no thyromegaly. LUNGS: Unlabored breathing. Decreased breath of the base . No wheeze or crackle. HEART: S1, S2, regular rate and rhythm. No loud murmur ABDOMEN: Soft, no tenderness , guarding or rigidity, no organomegaly EXTREMITIES: No edema of feet. SKIN: No rash, no masses palpable. NEUROLOGICAL: The patient is lethargic but arousable mood and affect could not determine. Results CBC & Chem 7: 08/08/19 06:56 08/08/19 06:56 Labs: Abnormal Lab Results - Last 24 Hours (Table) 08/07/19 08/07/19 08/07/19 Range/Units 01:10 01:10 01:30 WBC 18.0 H (3.8-10.6) k/uL RBC 4.15 L (4.30-5.90) m/uL MCV 120.3 H (80.0-100.0) fL MCH 39.0 H (25.0-35.0) pg Neutrophils # 15.9 H (1.3-7.7) k/uL Macrocytosis Marked A PT (9.0-12.0) sec INR (<1.2) Sodium 150 H (137-145) mmol/L Chloride 121 H (98-107) mmol/L BUN 40 H (9-20) mg/dL Glucose 107 H (74-99) mg/dL POC Glucose (mg/dL) (75-99) mg/dL AST 88 H (17-59) U/L ALT 58 H (4-49) U/L Alkaline Phosphatase 157 H (38-126) U/L Albumin 3.0 L (3.5-5.0) g/dL Urine Protein 1+ H (Negative) Urine Blood Small H (Negative) Ur Leukocyte Esterase Small H (Negative) Urine WBC 8 H (0-5) /hpf Urine Bacteria Rare H (None) /hpf Urine Mucus Rare H (None) /hpf C. difficile (EIA) Intrp (Negative) 08/07/19 08/07/19 08/07/19 Range/Units 01:35 11:43 15:30 WBC (3.8-10.6) k/uL RBC (4.30-5.90) m/uL MCV (80.0-100.0) fL MCH (25.0-35.0) pg Neutrophils # (1.3-7.7) k/uL Macrocytosis PT 14.4 H (9.0-12.0) sec INR 1.5 H (<1.2) Sodium (137-145) mmol/L Chloride (98-107) mmol/L BUN (9-20) mg/dL Glucose (74-99) mg/dL POC Glucose (mg/dL) 101 H (75-99) mg/dL AST (17-59) U/L ALT (4-49) U/L Alkaline Phosphatase (38-126) U/L Albumin (3.5-5.0) g/dL Urine Protein (Negative) Urine Blood (Negative) Ur Leukocyte Esterase (Negative) Urine WBC (0-5) /hpf Urine Bacteria (None) /hpf Urine Mucus (None) /hpf C. difficile (EIA) Intrp Positive A (Negative) 08/07/19 08/07/19 Range/Units 17:04 20:05 WBC (3.8-10.6) k/uL RBC (4.30-5.90) m/uL MCV (80.0-100.0) fL MCH (25.0-35.0) pg Neutrophils # (1.3-7.7) k/uL Macrocytosis PT (9.0-12.0) sec INR (<1.2) Sodium (137-145) mmol/L Chloride (98-107) mmol/L BUN (9-20) mg/dL Glucose (74-99) mg/dL POC Glucose (mg/dL) 102 H 103 H (75-99) mg/dL AST (17-59) U/L ALT (4-49) U/L Alkaline Phosphatase (38-126) U/L Albumin (3.5-5.0) g/dL Urine Protein (Negative) Urine Blood (Negative) Ur Leukocyte Esterase (Negative) Urine WBC (0-5) /hpf Urine Bacteria (None) /hpf Urine Mucus (None) /hpf C. difficile (EIA) Intrp (Negative) Assessment and Plan Assessment: 1-patient presented to hospital with abnormal labs in this patient who did have elevated white count of 18,000 also with elevated BUN now with significant diarrhea and stool for C. difficile positive likely representing acute C. difficile colitis in this patient currently with no fever and no hypoxemia plus the chest x-ray did not show significant consolidation underlying pneumonia clinically and in view of the C. difficile colitis we will hold on any further systemic antibiotic to prevent any worsening of his C. difficile (1) C. difficile colitis Current Visit: Yes Status: Acute Code(s): A04.72 - ENTEROCOLITIS D/T CLOSTRIDIUM DIFFICILE, NOT SPCF RECUR SNOMED Code(s): 901082210 Plan: 1-Flagyl 500 mg IV every 8 hour however if he did not see any improvement will recommend placing an NG for oral vancomycin 2-discontinue the vancomycin and Zosyn 3-IV fluid We will follow on clinical condition and cultures to further adjust medication if needed Thank you for this consultation will follow this patient along with you Time with Patient: Greater than 30
[2019-08-08] MEDS ORDERED: SCOPOLAMINE 1.5MG/72HR PATCH TRANSDERM SCH (11:30)
--- NOTE | 2019-08-08 15:26 | P.PN ---
Subjective Progress Note Date: 08/08/19 Principal diagnosis: 73-year-old male admitted for possible aspiration pneumonia. Patient recently had a CVA after which patient the clinical condition has worsened patient declined PEG tube patient is still on by mouth feedings. Patient is unable to provide many history patient is arousable with verbal and tactile stimuli he appears to be severely lethargic unable to provide me any history. I still have to talk to the family. Patient was sent in here for possible de hydration patient clinically appears to be quite a bit dehydrated with hypernatremia. Chest x-ray is suspicious for aspiration in the left lower lung brower exam is quite a bit limited as patient cannot provide any history and family is not available at this time. Although patient appears obtunded 08/08/2019 Patient was seen and evaluated and follow-up no acute overnight changes. Patient continues to be obtunded and quite lethargic. Patient continues to not eat and continues to refuse PEG tube placement. Speech pathology is evaluating the patient and attempting an ice chip today. Spoke to the family member daughter Rebecca who is open to discussing hospice and will be in today as she is from [place] and traveling here. We'll continue to monitor closely. Objective - Vital Signs Vital signs: Vital Signs Temp 98.0 F 08/08/19 12:56 Pulse 72 08/08/19 12:56 Resp 15 08/08/19 12:56 BP 118/77 08/08/19 12:56 Pulse Ox 95 08/08/19 12:56 Intake & Output 08/07/19 08/08/19 08/08/19 18:59 06:59 18:59 Intake Total 0 0 Output Total 501 350 Balance -501 -350 Weight 58.967 kg Intake: Oral 0 0 Output: Urine 500 350 Stool 1 Other: Voiding Method Indwelling Catheter # Bowel Movements 2 - Exam GENERAL: He appears dry dehydrated, obtunded but arousable excessively lethargic, thin built HEENT: Pupils are round and equally reacting to light. EOMI. No scleral icterus. No conjunctival pallor. Normocephalic, atraumatic. No pharyngeal erythema. No thyromegaly. Dry mucous membranes and skin laxity CARDIOVASCULAR: S1 and S2 present. No murmurs, rubs, or gallops. PULMONARY: Diminished breath sounds with a few scattered rhonchi noted. ABDOMEN: Soft, thin, nontender, nondistended, normoactive bowel sounds. No palpable organomegaly. MUSCULOSKELETAL: No joint swelling or deformity. EXTREMITIES: No cyanosis, clubbing, or pedal edema. NEUROLOGICAL: Unable to assess SKIN: No rashes. - Labs CBC & Chem 7: 08/08/19 06:56 08/08/19 06:56 Labs: Abnormal Lab Results - Last 24 Hours (Table) 08/07/19 08/07/19 08/07/19 Range/Units 15:30 17:04 20:05 WBC (3.8-10.6) k/uL RBC (4.30-5.90) m/uL MCV (80.0-100.0) fL MCH (25.0-35.0) pg Macrocytosis Sodium (137-145) mmol/L Potassium (3.5-5.1) mmol/L Chloride (98-107) mmol/L Carbon Dioxide (22-30) mmol/L BUN (9-20) mg/dL POC Glucose (mg/dL) 102 H 103 H (75-99) mg/dL C. difficile (EIA) Intrp Positive A (Negative) 08/08/19 08/08/19 Range/Units 06:56 06:56 WBC 20.0 H (3.8-10.6) k/uL RBC 3.64 L (4.30-5.90) m/uL MCV 121.0 H (80.0-100.0) fL MCH 39.6 H (25.0-35.0) pg Macrocytosis Marked A Sodium 150 H (137-145) mmol/L Potassium 3.1 L (3.5-5.1) mmol/L Chloride 125 H (98-107) mmol/L Carbon Dioxide 18 L (22-30) mmol/L BUN 27 H (9-20) mg/dL POC Glucose (mg/dL) (75-99) mg/dL C. difficile (EIA) Intrp (Negative) Microbiology - Last 24 Hours (Table) 08/07/19 01:50 Blood Culture - Preliminary Blood No Growth after 24 hours 08/07/19 01:35 Blood Culture - Preliminary Blood No Growth after 24 hours Assessment and Plan Assessment: -Possible aspiration pneumonia -Severe dehydration leading to acute renal failure, patient was started on half- normal saline lactic acid level will be obtained. Lactic acid level is 1.1 BUN of 27 with a creatinine of 1.02 -Hypokalemia; current potassium 3.1 and being replaced -Severe metabolic encephalopathy secondary to dehydration -Hypernatremia hypovolemic hyponatremia patient was started on half-normal saline as mentioned above -Patient had a recent stroke declined PEG tube unable to feed patient is more appropriate for comfort care and hospice will discuss with the family regarding this patient is presently DO NOT RESUSCITATE, joanna Fernandez currently coming in from [place] to discuss hospice options and is open and agreeable to hospice at this time -CVA TIA -hyperlipidemia -Hypertension -Osteoarthritis -Coronary artery disease -Nicotine abuse history -Macrocytic anemia probably B12 or folate deficiency because of poor peripheral intake -severe malnutrition Above-mentioned chronic medical problems patient is on multiple medications but unable to give any as patient is not awake enough to take any medications. Patient will be hydrated continue with the IV fluids IV antibiotics will discuss with the family regarding his overall goals of care patient doesn't have a PEG tube failed swallow evaluation in the past patient declined PEG tube in the past and family doesn't want any PEG tube because of which patient is nutritionally deficient and dehydrated -CODE STATUS DO NOT RESUSCITATE Plan: To continue with half normal saline as sodium continues to be elevated at 150 and patient is severely dehydrated. Will continue Flagyl at this time as patient is positive for C. diff. Patient has not eaten and is refusing PEG tube placement. Awaiting joanna Fernandez arrival from [place] as she is the next of kin and is open to discussing hospice options and will meet with hospice when she arrives. Will continue to follow closely. Further recommendations to follow. Prognosis is poor.
--- NOTE | 2019-08-08 16:14 | PN ---
PROGRESS NOTE DATE OF SERVICE: 08/08/2019. REASON FOR FOLLOWUP: C difficile colitis. INTERVAL HISTORY: The patient is currently afebrile, has been breathing comfortably. Currently 98% on 2 L. No significant congested cough or vomiting has been noticed. Patient continued to have diarrhea all night long per the nursing staff and one episode this morning. The patient On examination, blood pressure is 118/77 with a pulse of 72, temperature of 98. He is 95% on 2 L nasal cannula. General description is an elderly male lying in bed in no distress. RESPIRATORY SYSTEM: Unlabored breathing with decreased breath sounds at the base. No wheeze. HEART: S1, S2. Regular rate and rhythm. ABDOMEN: Soft. No tenderness. LABS: Hemoglobin is 14.4, white count 20. Creatinine 1.02. Blood cultures have been negative. DIAGNOSTIC IMPRESSION AND PLAN: Patient admitted to hospital with elevated white count, significant diarrhea, likely secondary to Clostridium difficile colitis. Unfortunately patient did have by mouth and the patient is refusing a PEG tube. option for his continued diarrhea Flagyl vancomycin. MMODL / IJN: [id number] /
--- NOTE | 2019-08-08 18:17 | CDI ---
Documentation Clarification Form Date: 08/08/2019 05:55:22 PM From: Edda Lamar RN CCDS Admit Date: 08/07/2019 02:27:00 AM Patient Name: Roney Flores Visit Number: [id number] Discharge Date: ATTENTION: The Clinical Documentation Specialists (CDI) and [facility] Coding Staff appreciate your assistance in clarifying documentation. Please respond to the clarification below the line at the bottom and electronically sign. The CDI & [facility] Coding staff will review the response and follow-up if needed. Please note: Queries are made part of the Legal Health Record. If you have any questions, please contact the author of this message via ITS. Dr. Bart Xavier Patient will be admitted for sepsis secondary to pneumonia, profound dehydration. Is documented in the ED report 08/06 History/Risk Factors: 73-year-old male presents to the ED via EMS for evaluation of worsening outpatient labs, dehydration and possible infection. Medical history recent CVA with dysphagia patient refuses peg tube and NV Clinical Indicators: Labs 08/06 Wbc 18.0, Neutrophils 15.9, Na 150, Lactic acid 1.5, C. difficile positive A Blood cultures: No growth after 24 hours 08/07 Vitals signs on admission 08/06: 154/90 90 98.0 15 97% room air Treatment: ID Consult: 08/06 - C. difficile colitis patient currently with no fever and no hypoxemia plus the chest x-ray did not show significant consolidation underlying pneumonia Antibiotics: 08/06 Zosyn Ivpb Q 8 hrs d/c 08/07; 08/06 Vancomycin Ivpb Q16 hrs d/c 08/06; 08/06 Metronidazole Ivpb Q 8 hrs IV Bolus:08/06 0.9 Ns 1.5L bolus, In your professional opinion, please clarify if these findings signify one of the following conditions, whether the condition is POA, and cause, if known: Sepsis ruled out Sepsis POA Other, please specify Unable to determine SIRS Criteria (2 or more of the following may indicate SIRS): -Temperature < 96.8F (36C) or > 101.0F (38.3C) -Heart Rate > 90 bpm -Respiratory Rate > 20 breaths/min or PaCO2 < 32 mmHg -White Blood Cell Count > 12,000 or < 4,000 cells/mm3 or > 10% bands -Lactate >2.0 mmol/L (>4.0 is equivalent to septic shock) (Last Revision: August 2017) Sepsis POA MTDD
[2019-08-08 21:48] LABS: Glucose,Whole Blood 81 mg/dL (75-99)
[2019-08-09] MEDS: metroNIDAZOLE-NS PMX 500 MG in SALINE 1 100ML.BAG IVPB SCH ×4 (00:20→23:29)
[2019-08-09] MEDS ORDERED: Potassium Replacement Protocol 1 EACH MISC MISCELLANE PRN (00:52)
[2019-08-09] MEDS: POTASSIUM CHLORIDE 10 MEQ in WATER FOR INJECTION 1 100ML.BAG IVPB SCH ×4 (01:41→04:32)
[2019-08-09] MEDS: SODIUM CHLORIDE 0.45% 1,000 ML IV SCH ×2 (05:35→17:14)
[2019-08-09] MEDS: NYSTATIN 100,000 UNIT/ML SUSP 500,000 UNIT/5 ML CUP PO SCH (08:39)
[2019-08-09 09:14] LABS: Magnesium 1.9 mg/dL (1.6-2.3); Potassium 3.5 mmol/L (3.5-5.1)
--- NOTE | 2019-08-09 16:26 | P.PN ---
Subjective Progress Note Date: 08/09/19 Principal diagnosis: 73-year-old male admitted for possible aspiration pneumonia. Patient recently had a CVA after which patient the clinical condition has worsened patient declined PEG tube patient is still on by mouth feedings. Patient is unable to provide many history patient is arousable with verbal and tactile stimuli he appears to be severely lethargic unable to provide me any history. I still have to talk to the family. Patient was sent in here for possible de hydration patient clinically appears to be quite a bit dehydrated with hypernatremia. Chest x-ray is suspicious for aspiration in the left lower lung brower exam is quite a bit limited as patient cannot provide any history and family is not available at this time. Although patient appears obtunded 08/08/2019 Patient was seen and evaluated and follow-up no acute overnight changes. Patient continues to be obtunded and quite lethargic. Patient continues to not eat and continues to refuse PEG tube placement. Speech pathology is evaluating the patient and attempting an ice chip today. Spoke to the family member daughter Rebecca who is open to discussing hospice and will be in today as she is from [place] and traveling here. We'll continue to monitor closely. 08/09/2019 Patient is seen in follow-up today with no acute overnight issues. Patient is a little more alert today although remains quite lethargic. Daughter Rebecca at the bedside. Patient and daughter spoke with [facility] hospice and are currently making arrangements to continue with hospice at home. Arranging for a bed plac [facility] in the home. Patient was seen and evaluated by speech pathology again and due to his level of alertness being slightly improved patient will be started on a pured diet with honey thickened liquids with aspiration cautions and one-on-one supervision. Potassium was replaced yesterday and is currently 3.5 today. Will continue to monitor closely. Objective - Vital Signs Vital signs: Vital Signs Temp 97.6 F 08/09/19 14:35 Pulse 97 08/09/19 14:35 Resp 16 08/09/19 14:35 BP 145/82 08/09/19 14:35 Pulse Ox 99 08/09/19 14:35 Intake & Output 08/08/19 08/09/19 08/09/19 18:59 06:59 18:59 Intake Total 0 Output Total 300 350 600 Balance -300 -350 -600 Intake: Oral 0 Output: Urine 300 350 600 Other: Voiding Method Indwelling Catheter Indwelling Catheter Indwelling Catheter # Bowel Movements 1 - Exam GENERAL: He appears dry dehydrated, awake, fatigues easily, but arousable thin built HEENT: Pupils are round and equally reacting to light. EOMI. No scleral icterus. No conjunctival pallor. Normocephalic, atraumatic. No pharyngeal erythema. No thyromegaly. Dry mucous membranes and skin laxity CARDIOVASCULAR: S1 and S2 present. No murmurs, rubs, or gallops. PULMONARY: Diminished breath sounds with a few scattered rhonchi noted. ABDOMEN: Soft, thin, nontender, nondistended, normoactive bowel sounds. No palpable organomegaly. MUSCULOSKELETAL: No joint swelling or deformity. EXTREMITIES: No cyanosis, clubbing, or pedal edema. NEUROLOGICAL: Unable to assess SKIN: No rashes. - Labs CBC & Chem 7: 08/08/19 06:56 08/09/19 08:27 Labs: Abnormal Lab Results - Last 24 Hours (Table) 08/08/19 Range/Units 18:57 Potassium 3.1 L (3.5-5.1) mmol/L Microbiology - Last 24 Hours (Table) 08/07/19 01:35 Blood Culture - Preliminary Blood No Growth after 48 hours 08/07/19 01:50 Blood Culture - Preliminary Blood No Growth after 48 hours Assessment and Plan Assessment: -Possible aspiration pneumonia -Sepsis ruled out -Severe dehydration leading to acute renal failure, patient was started on half- normal saline lactic acid level will be obtained. Lactic acid level is 1.1 BUN of 27 with a creatinine of 1.02 -Hypokalemia; current potassium 3.1 and being replaced -Severe metabolic encephalopathy secondary to dehydration -Hypernatremia hypovolemic hyponatremia patient was started on half-normal saline as mentioned above -Patient had a recent stroke declined PEG tube unable to feed patient is more appropriate for comfort care and hospice will discuss with the family regarding this patient is presently DO NOT RESUSCITATE, daughter Rebecca currently coming in from [place] to discuss hospice options and is open and agreeable to hospice at this time -CVA TIA -hyperlipidemia -Hypertension -Osteoarthritis -Coronary artery disease -Nicotine abuse history -Macrocytic anemia probably B12 or folate deficiency because of poor peripheral intake -severe malnutrition Above-mentioned chronic medical problems patient is on multiple medications but unable to give any as patient is not awake enough to take any medications. Patient will be hydrated continue with the IV fluids IV antibiotics will discuss with the family regarding his overall goals of care patient doesn't have a PEG tube failed swallow evaluation in the past patient declined PEG tube in the past and family doesn't want any PEG tube because of which patient is nutritionally deficient and dehydrated -CODE STATUS DO NOT RESUSCITATE Plan: Daughter and patient agreeable to hospice and have met with [facility] and are currently making arrangements to continue with hospice in the home. Will continue to follow closely. Further recommendations to follow. Prognosis is poor. Probable discharge in the a.m.
[2019-08-10] MEDS: SODIUM CHLORIDE 0.45% 1,000 ML IV SCH ×2 (00:24→07:48)
[2019-08-10 07:04] VITALS: BP 117/62; PULSE 83; RESP 16; TEMP 97.3
[2019-08-10] MEDS: metroNIDAZOLE-NS PMX 500 MG in SALINE 1 100ML.BAG IVPB SCH (07:47)
--- NOTE | 2019-08-10 08:46 | P.DS ---
Providers Date of admission: 08/07/19 02:27 Expected date of discharge: 08/10/19 Attending physician: Pasquale Yu Consults: 08/07/19 16:06 Consult Physician Routine Consulting Provider: Jeannine Townsend Consult Reason/Comments: postive Cdiff Do you want consulting provider notified?: Yes Primary care physician: Hilario Wilburnqvi [facility] Course: Final diagnosis -Possible aspiration pneumonia -Sepsis ruled out -Severe dehydration leading to acute renal failure -Hypokalemia -Severe metabolic encephalopathy secondary to dehydration -Hypernatremia hypovolemic hyponatremia -Patient had a recent stroke -CVA TIA -hyperlipidemia -Hypertension -Osteoarthritis -Coronary artery disease -Nicotine abuse history -Macrocytic anemia probably B12 or folate deficiency because of poor peripheral intake -severe malnutrition Discharge disposition Patient is being discharged in a stable condition with guarded and poor prognosis to home and will continue with [facility] hospice in the outpatient setting. Patient was provided a prescription for Flagyl 500 mg 3 times a day for the next 5 days to complete the course. Total time taken is 35 minutes. History of present illness This is an 73-year-old male who was recently admitted with possible aspiration pneumonia and was being closely monitored. Patient was also found to have C. diff in the stool and was treated with Flagyl. Patient provided prescription for oral Flagyl to complete the course. Patient continued to show no improvement and after a lengthy discussion with family and the patient they are proceeding with [facility] and will be going home today. Today patient is more alert and attempting to eat a pured diet with nectar thickened liquids and may continue to do so in the outpatient setting. Patient is still refusing any sort of PEG tube placement and wants to proceed with hospice. Currently no reports of chest pain, shortness of breath, or palpitations. Patient is afebrile. No reports of nausea or vomiting and patient is tolerating diet. Poor prognosis. On exam vital signs are stable. Temp is 97.3, pulse is 83, respirations are 16, blood pressure is 117/62, oxygen saturation is 98 % on 2 L via nasal cannula. Cardio S1, S2 are muffled. Respiratory shows diminished breath sounds at the bases with a few scattered rhonchi noted. Abdomen is soft, thin, and nontender. Nervous system shows mild diffuse weakness. Please refer to medication reconciliation sheet for a list of medications. Patient Condition at Discharge: Poor Plan - Discharge Summary Discharge Rx Participant: No New Discharge Prescriptions: New metroNIDAZOLE [Flagyl] 500 mg PO Q8HR #15 tab Scopolamine 1.5MG/72Hr Patch [TransDerm Scop] 1 patch TRANSDERM Q72H #10 patch Continue Budesonide/Formoterol Fumarate [Symbicort 160-4.5 Mcg Inhaler] 2 puff INHALATION RT-BID Ipratropium-Albuterol Nebulize [Duoneb 0.5 mg-3 mg/3 ml Soln] 3 ml INHALATION RT-Q6H PRN PRN Reason: Shortness Of Breath Ticagrelor [Brilinta] 90 mg PO BID@0900,2100 Ensure Clear 237 ml PO TID@0800,1200,1700 Lactose-Reduced Food [Ensure Plus] 240 ml PO BID@0900,1700 Tiotropium [place] [Spiriva] 1 cap INHALATION RT-DAILY Sertraline HCl [Zoloft] 50 mg PO DAILY@0900 Discontinued Atorvastatin [Lipitor] 80 mg PO HS@2100 Cholecalciferol [Vitamin D3 (25 Mcg = 1000 Iu)] 1,000 unit PO DAILY@0900 Atenolol [Tenormin] 25 mg PO DAILY@0900 Dextrose-Sodium Chloride Solution 5-0.45% 70 ml IV Q12H Cefuroxime Axetil [Ceftin] 500 mg PO BID Nicotine 14Mg/24Hr Patch [Habitrol 14Mg/24Hr Patch] 1 patch TRANSDERM DAILY@0900 Esomeprazole Magnesium [NexIUM] 40 mg PO DAILY@0900 Enoxaparin Sodium 40 mg SQ DAILY@1700 Aspirin 81 mg PO DAILY@0900 Discharge Medication List Budesonide/Formoterol Fumarate [Symbicort 160-4.5 Mcg Inhaler] 2 puff INHALATION RT-BID 03/20/16 [History] Ensure Clear 237 ml PO TID@0800,1200,1700 08/07/19 [History] Ipratropium-Albuterol Nebulize [Duoneb 0.5 mg-3 mg/3 ml Soln] 3 ml INHALATION RT-Q6H PRN 08/07/19 [History] Lactose-Reduced Food [Ensure Plus] 240 ml PO BID@0900,1700 08/07/19 [History] Sertraline HCl [Zoloft] 50 mg PO DAILY@0900 08/07/19 [History] Ticagrelor [Brilinta] 90 mg PO BID@0900,2100 08/07/19 [History] Tiotropium [place] [Spiriva] 1 cap INHALATION RT-DAILY 08/07/19 [History] Scopolamine 1.5MG/72Hr Patch [TransDerm Scop] 1 patch TRANSDERM Q72H #10 patch 08/10/19 [Rx] metroNIDAZOLE [Flagyl] 500 mg PO Q8HR #15 tab 08/10/19 [Rx] Follow up Appointment(s)/Referral(s): Hilario Flynn MD [Primary Care Provider] - 1-2 days Activity/Diet/Wound Care/Special Instructions: Patient going home with [facility] continue current diet of dysphagia 1 puree with nectar thickened liquids continue antibiotics and may crush Discharge Disposition: HOME WITH HOSPICE
== END 2019-08-10 09:56 | disposition hospice, home (50) | DRG 177 ==
LOC: EC 00:27 → 6NMEDSUR 02:27
PROVIDERS: ADMIT Hospitalist; ATTEND Hospitalist
DX: J69.0 Pneumonitis due to inhalation of food and vomit (principal); E43 Unspecified severe protein-calorie malnutrition; G93.41 Metabolic encephalopathy; E87.0 Hyperosmolality and hypernatremia; N39.0 Urinary tract infection, site not specified; A04.72 Enterocolitis due to Clostridium difficile, not specified as recurrent; D53.9 Nutritional anemia, unspecified; E53.8 Deficiency of other specified B group vitamins; E78.5 Hyperlipidemia, unspecified; E86.0 Dehydration; E86.1 Hypovolemia; E87.6 Hypokalemia; F17.200 Nicotine dependence, unspecified, uncomplicated; I10 Essential (primary) hypertension; I25.10 Atherosclerotic heart disease of native coronary artery without angina pectoris; I25.2 Old myocardial infarction; M19.90 Unspecified osteoarthritis, unspecified site; Z66 Do not resuscitate; Z79.01 Long term (current) use of anticoagulants; Z79.02 Long term (current) use of antithrombotics/antiplatelets; Z79.51 Long term (current) use of inhaled steroids; Z79.82 Long term (current) use of aspirin; Z79.899 Other long term (current) drug therapy; Z86.73 Personal history of transient ischemic attack (TIA), and cerebral infarction without residual deficits; Z68.21 Body mass index [BMI] 21.0-21.9, adult; Z51.5 Encounter for palliative care
CPT/HCPCS: 36415; 71045; 80048; 80053; 81001; 82565; 83605; 83735; 84132; 85025; 85027; 85610; 85730; 87040; 87324; 87502; 87634; 93005; 96361; 96365; 99285